=== PATIENT | female | born 1960 | race Caucasian/White ===

== ENCOUNTER 2017-10-28 17:57 | Emergency (ER) | payer OTHER ==
[~2017-10-28] VITALS: Ht 162.6 cm; Wt 59.0 kg
[~2017-10-28 17:57] MED LIST: ACET500 PT; ALBU.083IS IH; ALPR.5; ALPR.5 PO; ALPR1 PT; AMIT10 PO; AMIT50 PO; AMLO10 PO; AMOCLA875 PO; BECL80OI INH; Bactrim Ds Tab1 EACH PO; Banatrol1 EACH PT; CARI350; CEPH500 PO; CIME400; COLE1 PO; DIAZ5; DIVA500EC; Diflucan100 MG PT; Ecotrin325 MG PT; FLUC150A PT; Flagyl500 MG PT; HYDACE5; HYDACE5 PO; IBUP600; LAMO100 PO; LAMO100 PT; LEVE500 PO; LEVE500 PT; LEVSOD50; LEVSOD50 PT; LISI10 PO; LISI20 PO; LORA1 PO; METH1EL PO; METH5 PO; METO10 PO; METO100 PO; METO100ER PO; METO25 PT; METO50 PO; METO50 PT; MUPI2TO TOP; NYSTRIT; OMEP20ER PO; ONDA8 PO; ONDA8ODT MM; OXYACE5T PT; OXYC10ER PO; OXYC10TA19 PT; OXYC15ER PO; OXYC30 PT; OXYC30ER PO; OXYC5 PO; PARO20 PO; POTCHL20ER PT; Pedi-Dri 100,0060 GM; Prevacid Soluta30 MG PT; Pyridium100 MG PO; QUIN300; SACC250C PT; SENN8.8S8 PO; SERT50 PT; SULF10OPSA OD; SULTRIDS PO; SULTRIDS PT; SUMA25 PO; TRAZ50 PO; Zofran Odt4 MG SL
[2017-10-28 19:02] LABS: BASOPHILS ABSOLUTE AUTO 0.02 K/mm3 (0.00-0.23); BASOPHILS PERCENT AUTO 0 % (0-2); EOSINOPHILS ABSOLUTE AUTO 0.16 K/mm3 (0.00-0.68); EOSINOPHILS PERCENT AUTO 3 % (0-6); Hematocrit 35.2 % (33.0-51.0); Hemoglobin 11.2 g/dL (11.5-16.0); IMMATURE GRAN ABSOLUTE AUTO 0.01 K/mm3 (0.00-0.10); IMMATURE GRAN PERCENT AUTO 0 % (0-1); LYMPHOCYTES PERCENT AUTO 39 % (21-46); MONOCYTES ABSOLUTE AUTO 0.64 K/mm3 (0.16-1.47); MONOCYTES PERCENT AUTO 10 % (4-13); Mean Corpuscular HGB 29.2 pg (26.0-34.0); Mean Corpuscular HGB Conc 31.8 g/dL (31.5-36.5); Mean Corpuscular Volume 92 fL (80-100); Mean Platelet Volume 11.7 fL (9.1-12.4); NEUTROPHILS ABSOLUTE AUTO 3.01 K/mm3 (1.96-9.15); NEUTROPHILS PERCENT AUTO 48 % (41-73); Platelet Count 214 K/mm3 (150-400); RDW Coefficient Variation 12.8 % (11.7-14.2); RDW Standard Deviation 42.2 fL (35.1-46.3); Red Blood Cell Count 3.84 M/mm3 (3.80-5.20); White Blood Cell Count 6.24 K/mm3 (4.00-11.30)
[2017-10-28 19:21] LABS: Alanine Aminotransfer (ALT/SGP 25 U/L (12-78); Albumin/Globulin Ratio 0.7 (0.8-1.8); Alk Phos 99 U/L (50-136); Anion Gap 6 mmol/L (6-16); Aspartate Aminotrans (AST/SGOT 18 U/L (12-37); Bilirubin, Total 0.1 mg/dL (0.1-1.0); Blood Urea Nitrogen 22 mg/dL (8-24); CO2, Blood 30 mmol/L (21-32); Calcium, Blood 8.9 mg/dL (8.5-10.1); Chloride, Blood 103 mmol/L (98-108); Creatinine, Blood 0.85 mg/dL (0.40-1.00); Globulin, Blood 4.5 g/dL (2.2-4.0); Glomerular Filtration Rate >60 (60-); Glucose, Blood 120 mg/dL (70-99); Potassium, Blood 3.9 mmol/L (3.5-5.5); Sodium, Blood 139 mmol/L (136-145); Total Protein, Blood 7.5 g/dL (6.4-8.2)
[2017-10-28] MEDS ORDERED: CEPH500 PO (19:47)
[2017-10-28 19:51] LABS: Source, Urine Clean Catch
[2017-10-28 19:58] LABS: Appearance, Urine Hazy (Clear); Bilirubin, Urine Neg (Neg); Blood, Urine 4+ (Neg); Color, Urine Yellow (P-Yellow); Glucose Qualitative, Urine Neg (Neg); Ketones, Urine Neg (Neg); Leukocyte Esterase, Urine 3+ (Neg); Nitrite, Urine Pos (Neg); Protein, Urine Neg (Neg); Urobilinogen, Urine NORM (Normal)
[2017-10-28 20:06] LABS: White Blood Cells, Urine 50-100 /hpf (0-5)
[2017-10-28 20:07] LABS: Bacteria Many /hpf; Squamous Epithelial Cells Few /hpf (Few)
== END 2017-10-28 20:59 | disposition home or self-care (01) ==
LOC: ER 17:57
PROVIDERS: Emergency Medicine
DX: N39.0 Urinary tract infection, site not specified (principal); I10 Essential (primary) hypertension; E03.9 Hypothyroidism, unspecified; G40.909 Epilepsy, unspecified, not intractable, without status epilepticus; Z88.8 Allergy status to other drugs, medicaments and biological substances; Z88.5 Allergy status to narcotic agent; Z91.048 Other nonmedicinal substance allergy status; Z91.09 Other allergy status, other than to drugs and biological substances; Z79.899 Other long term (current) drug therapy; Z86.14 Personal history of Methicillin resistant Staphylococcus aureus infection; Z90.49 Acquired absence of other specified parts of digestive tract; Z90.79 Acquired absence of other genital organ(s)
CPT/HCPCS: 70450; 80053; 81001; 84443; 85025; 96360; 96361; 99284; J7030; P9612

== ENCOUNTER 2017-11-11 10:38 | Emergency (ER) | payer OTHER ==
[~2017-11-11] VITALS: Ht 154.9 cm; Wt 61.2 kg
[2017-11-11 12:10] LABS: BASOPHILS ABSOLUTE AUTO 0.02 K/mm3 (0.00-0.23); BASOPHILS PERCENT AUTO 0 % (0-2); EOSINOPHILS ABSOLUTE AUTO 0.04 K/mm3 (0.00-0.68); EOSINOPHILS PERCENT AUTO 0 % (0-6); Hematocrit 37.8 % (33.0-51.0); Hemoglobin 12.2 g/dL (11.5-16.0); IMMATURE GRAN ABSOLUTE AUTO 0.03 K/mm3 (0.00-0.10); IMMATURE GRAN PERCENT AUTO 0 % (0-1); LYMPHOCYTES ABSOLUTE AUTO 1.65 K/mm3 (0.84-5.20); LYMPHOCYTES PERCENT AUTO 16 % (21-46); MONOCYTES ABSOLUTE AUTO 0.72 K/mm3 (0.16-1.47); MONOCYTES PERCENT AUTO 7 % (4-13); Mean Corpuscular HGB 29.8 pg (26.0-34.0); Mean Corpuscular HGB Conc 32.3 g/dL (31.5-36.5); Mean Corpuscular Volume 92 fL (80-100); NEUTROPHILS ABSOLUTE AUTO 7.85 K/mm3 (1.96-9.15); NEUTROPHILS PERCENT AUTO 76 % (41-73); Platelet Count 266 K/mm3 (150-400); RDW Coefficient Variation 13.4 % (11.7-14.2); RDW Standard Deviation 44.7 fL (35.1-46.3); Red Blood Cell Count 4.09 M/mm3 (3.80-5.20); White Blood Cell Count 10.31 K/mm3 (4.00-11.30)
[2017-11-11 12:35] LABS: Alanine Aminotransfer (ALT/SGP 15 U/L (12-78); Albumin, Blood 3.4 g/dL (3.4-5.0); Albumin/Globulin Ratio 0.7 (0.8-1.8); Alk Phos 86 U/L (50-136); Anion Gap 6 mmol/L (6-16); Aspartate Aminotrans (AST/SGOT 12 U/L (12-37); Bilirubin, Total 0.3 mg/dL (0.1-1.0); Blood Urea Nitrogen 13 mg/dL (8-24); Bun/Creatinine Ratio 17.8 (12.0-20.0); CO2, Blood 31 mmol/L (21-32); Calcium, Blood 10.2 mg/dL (8.5-10.1); Chloride, Blood 103 mmol/L (98-108); Creatinine, Blood 0.73 mg/dL (0.40-1.00); Globulin, Blood 4.8 g/dL (2.2-4.0); Glomerular Filtration Rate >60 (60-); Glucose, Blood 108 mg/dL (70-99); Potassium, Blood 4.6 mmol/L (3.5-5.5); Sodium, Blood 140 mmol/L (136-145); Total Protein, Blood 8.2 g/dL (6.4-8.2)
[2017-11-11 13:22] LABS: Influenza A Negative (NEGATIVE); Influenza B Negative (NEGATIVE)
[2017-11-11] MEDS ORDERED: MUCINEX FAST-M180 M4 PO (14:07)
== END 2017-11-11 14:45 | disposition home or self-care (01) ==
LOC: ER 10:38
PROVIDERS: Emergency Medicine
DX: J06.9 Acute upper respiratory infection, unspecified (principal); G40.909 Epilepsy, unspecified, not intractable, without status epilepticus; G80.9 Cerebral palsy, unspecified; H91.90 Unspecified hearing loss, unspecified ear; F32.9 Major depressive disorder, single episode, unspecified; I10 Essential (primary) hypertension; E03.9 Hypothyroidism, unspecified; Z91.048 Other nonmedicinal substance allergy status; Z88.5 Allergy status to narcotic agent; Z91.09 Other allergy status, other than to drugs and biological substances; Z79.899 Other long term (current) drug therapy; Z79.82 Long term (current) use of aspirin; Z86.14 Personal history of Methicillin resistant Staphylococcus aureus infection; Z90.49 Acquired absence of other specified parts of digestive tract
CPT/HCPCS: 36415; 71045; 80053; 85025; 87804; 94640; 96360; 99283; J7030

== ENCOUNTER 2018-03-10 10:16 | Emergency (ER) | payer OTHER ==
[~2018-03-10] VITALS: Ht 157.5 cm; Wt 62.6 kg
[~2018-03-10 10:16] MED LIST changes: +MUCINEX FAST-M180 M4 PO
== END 2018-03-10 11:14 | disposition home or self-care (01) ==
LOC: ER 10:16
DX: Z43.1 Encounter for attention to gastrostomy (principal); G80.9 Cerebral palsy, unspecified; I67.1 Cerebral aneurysm, nonruptured; Z91.048 Other nonmedicinal substance allergy status; Z88.5 Allergy status to narcotic agent; Z88.8 Allergy status to other drugs, medicaments and biological substances; Z79.899 Other long term (current) drug therapy; Z79.82 Long term (current) use of aspirin; G43.909 Migraine, unspecified, not intractable, without status migrainosus; F32.9 Major depressive disorder, single episode, unspecified; I10 Essential (primary) hypertension; E03.9 Hypothyroidism, unspecified
CPT/HCPCS: 43760; 99283

== ENCOUNTER 2018-04-10 22:22 | Emergency (ER) | payer OTHER ==
[~2018-04-10] VITALS: Ht 157.5 cm; Wt 61.7 kg
[2018-04-11 00:59] LABS: Source, Urine Clean Catch
[2018-04-11 01:01] LABS: Bilirubin, Urine Neg (Neg); Blood, Urine 2+ (Neg); Glucose Qualitative, Urine Neg (Neg); Ketones, Urine Neg (Neg); Leukocyte Esterase, Urine 3+ (Neg); Nitrite, Urine Neg (Neg); Protein, Urine 1+ (Neg); Urobilinogen, Urine NORM (Normal)
[2018-04-11 01:04] LABS: Appearance, Urine Clear (Clear); Color, Urine Yellow (P-Yellow)
[2018-04-11 01:12] LABS: Bacteria Mod /hpf; Red Blood Cells, Urine Not Seen /hpf (0-2); Squamous Epithelial Cells Not Seen /hpf (Few)
== END 2018-04-11 02:20 | disposition home or self-care (01) ==
LOC: ER 22:22
PROVIDERS: Emergency Medicine
DX: G40.909 Epilepsy, unspecified, not intractable, without status epilepticus (principal); Z91.048 Other nonmedicinal substance allergy status; Z88.5 Allergy status to narcotic agent; Z88.8 Allergy status to other drugs, medicaments and biological substances; Z79.899 Other long term (current) drug therapy; Z79.82 Long term (current) use of aspirin; Z91.041 Radiographic dye allergy status
CPT/HCPCS: 51701; 70250; 70450; 71045; 74018; 81001; 82947; 87077; 87086; 87186; 99284-25

== ENCOUNTER 2018-11-09 06:11 | Observation (INO) | payer OTHER ==
[~2018-11-09] VITALS: Ht 157.5 cm; Wt 61.2 kg
[2018-11-09 09:24] LABS: BASOPHILS ABSOLUTE AUTO 0.04 K/mm3 (0.00-0.23); BASOPHILS PERCENT AUTO 0 % (0-2); EOSINOPHILS ABSOLUTE AUTO 0.28 K/mm3 (0.00-0.68); EOSINOPHILS PERCENT AUTO 3 % (0-6); Hemoglobin 12.6 g/dL (11.5-16.0); IMMATURE GRAN ABSOLUTE AUTO 0.03 K/mm3 (0.00-0.10); IMMATURE GRAN PERCENT AUTO 0 % (0-1); LYMPHOCYTES ABSOLUTE AUTO 1.54 K/mm3 (0.84-5.20); LYMPHOCYTES PERCENT AUTO 17 % (21-46); MONOCYTES ABSOLUTE AUTO 0.47 K/mm3 (0.16-1.47); MONOCYTES PERCENT AUTO 5 % (4-13); Mean Corpuscular HGB 29.7 pg (26.0-34.0); Mean Corpuscular HGB Conc 30.7 g/dL (31.5-36.5); Mean Corpuscular Volume 97 fL (80-100); Mean Platelet Volume 10.4 fL (9.1-12.4); NEUTROPHILS ABSOLUTE AUTO 6.68 K/mm3 (1.96-9.15); NEUTROPHILS PERCENT AUTO 74 % (41-73); Platelet Count 294 K/mm3 (150-400); RDW Coefficient Variation 14.5 % (11.7-14.2); RDW Standard Deviation 50.8 fL (35.1-46.3); Red Blood Cell Count 4.24 M/mm3 (3.80-5.20); White Blood Cell Count 9.04 K/mm3 (4.00-11.30)
[2018-11-09 09:44] LABS: Anion Gap 9 mmol/L (6-16); Blood Urea Nitrogen 42 mg/dL (8-24); Bun/Creatinine Ratio 49.2 (12.0-20.0); CO2, Blood 26 mmol/L (21-32); Calcium, Blood 8.9 mg/dL (8.5-10.1); Chloride, Blood 114 mmol/L (98-108); Creatinine, Blood 0.85 mg/dL (0.40-1.00); Glomerular Filtration Rate >60 (60-); Glucose, Blood 73 mg/dL (70-99); Potassium, Blood 3.7 mmol/L (3.5-5.5); Sodium, Blood 149 mmol/L (136-145)
--- NOTE | 2018-11-09 20:05 | NUR ---
SHIFT SUMMARY- PT ADMITTED THROUGH THE ED. PT HAS Hx SEIZURES, SEIZURE PADS IN PLACE, FAMILY IS AT THE BEDSIDE. PT HERE FOR DISLODGED FEEDING TUBE LUQ OPEN TO THE AIR. PER PT FAMILY SHE CAN TAKE IN TINY BITES OF FOOD. SPOKE TO DR CARUSO, HELD FIRST DOSE OF LAMICTAL, REQUESTED IV MED, NO IV EQUIVALENT AVAILABLE, OK TO HOLD FOR ASP PRECAUTIONS. PER PT AT THIS TIME SHE CAN NOT TAKE ANYTHING BY MOUTH, PT DEF AND MUTE BUT CAN WRITE AND SIGN. PT WROTE THAT SHE HAD PAIN 4/10 MEDICATED WITH IV PAIN MEDS. PER PT FAMILY SHE CAN TAKE SMALL AMOUNTS OF PO APPLE SAUCE, PUDDING AND JELLO. CRUSHED PO MEDS AND PUT THEM IN A TINY AMOUNT OF APPLE SAUCE AND GAVE TO THE PT 1/4 TEASPOON AT A TIME, PT HAD NO DIFFICULTY SWALLOWING THIS. PT FAMILY CAME BACK A LITTLE LATER AND GAVE HER PUDDING. INFORMED FAMILY THAT THE PT CAN NOT HAVE ANYTHING BY MOUTH PRIOR TO PROCEDURE SO STARTING AT MIDNIGHT. THEY ARE AWARE, BEDSIDE REPORT COMPLETED WITH NIGHT RIGOBERTO SZYMANSKI. PT CAN BECOME VERY EMOTIONAL AND OCCASSIONALLY CONFUSED. FAMILY IS STAYING WITH HER IN THE ROOM.
[2018-11-10 05:06] LABS: Hematocrit 41.2 % (33.0-51.0); Hemoglobin 12.7 g/dL (11.5-16.0); Mean Corpuscular HGB 29.6 pg (26.0-34.0); Mean Corpuscular HGB Conc 30.8 g/dL (31.5-36.5); Mean Corpuscular Volume 96 fL (80-100); Mean Platelet Volume 10.4 fL (9.1-12.4); Platelet Count 287 K/mm3 (150-400); RDW Coefficient Variation 14.5 % (11.7-14.2); RDW Standard Deviation 50.2 fL (35.1-46.3); Red Blood Cell Count 4.29 M/mm3 (3.80-5.20); White Blood Cell Count 10.25 K/mm3 (4.00-11.30)
[2018-11-10 05:26] LABS: Anion Gap 8 mmol/L (6-16); Blood Urea Nitrogen 34 mg/dL (8-24); Bun/Creatinine Ratio 46.1 (12.0-20.0); CO2, Blood 24 mmol/L (21-32); Calcium, Blood 8.9 mg/dL (8.5-10.1); Chloride, Blood 115 mmol/L (98-108); Creatinine, Blood 0.74 mg/dL (0.40-1.00); Glomerular Filtration Rate >60 (60-); Glucose, Blood 91 mg/dL (70-99); Potassium, Blood 3.8 mmol/L (3.5-5.5); Sodium, Blood 147 mmol/L (136-145)
--- NOTE | 2018-11-10 16:22 | NUR ---
Spiritual care visit conducted. Patient is was sitting in a chair in her room. Patient's uncle was present in the room and helped translate for me into sign language but communication was still a bit difficult. Patient was very joyful and has a wonderful sense of humor. I provided a calming presence and communicated to patient that her strength and love were powerful and beautiful. Patient communicated that she liked me even though she thought I was crazy. Patient asked if I could back when she could stay longer. Patient is a true inspiration.
--- NOTE | 2018-11-10 16:36 | NUR ---
PATIENT D/C'D TO HOME WITH FAMILY. D/C INSTRUCTIONS AND EDUCATION DISCUSSED WITH DANTE THE PATIENTS GUARDIAN AND COPY PROVIDED. PATIENT AND FAMILY DENY ANY FURTHER QUESTIONS OR CONCERNS.
== END 2018-11-10 16:28 | disposition home or self-care (01) ==
LOC: ER 06:11 → MEDS 06:12 → ER 08:58 → MEDS 08:58 → ENPENDDIS 11-10 15:32 → MEDS 11-10 16:28
PROVIDERS: Emergency Medicine; ADMIT Internal Medicine
DX: Z43.1 Encounter for attention to gastrostomy (principal); I10 Essential (primary) hypertension; G80.9 Cerebral palsy, unspecified; G40.909 Epilepsy, unspecified, not intractable, without status epilepticus; R53.2 Functional quadriplegia; F32.9 Major depressive disorder, single episode, unspecified; E03.9 Hypothyroidism, unspecified; Z79.899 Other long term (current) drug therapy; Z91.048 Other nonmedicinal substance allergy status; Z91.041 Radiographic dye allergy status; Z88.5 Allergy status to narcotic agent
CPT/HCPCS: 36415; 43762; 49465; 80048; 85025; 85027; 96361-59; 96372-59; 96374-59; 96375-59; 96376; 99284-25; G0378; J1200; J2930; J3010; J7120; Q9963

== ENCOUNTER 2018-11-25 15:53 | Emergency (ER) | payer OTHER ==
[~2018-11-25] VITALS: Ht 162.6 cm; Wt 64.0 kg
[2018-11-25 16:29] LABS: BASOPHILS ABSOLUTE AUTO 0.04 K/mm3 (0.00-0.23); BASOPHILS PERCENT AUTO 1 % (0-2); EOSINOPHILS ABSOLUTE AUTO 0.17 K/mm3 (0.00-0.68); EOSINOPHILS PERCENT AUTO 3 % (0-6); Hematocrit 37.4 % (33.0-51.0); Hemoglobin 11.5 g/dL (11.5-16.0); IMMATURE GRAN ABSOLUTE AUTO 0.02 K/mm3 (0.00-0.10); IMMATURE GRAN PERCENT AUTO 0 % (0-1); LYMPHOCYTES ABSOLUTE AUTO 2.07 K/mm3 (0.84-5.20); LYMPHOCYTES PERCENT AUTO 33 % (21-46); MONOCYTES ABSOLUTE AUTO 0.49 K/mm3 (0.16-1.47); MONOCYTES PERCENT AUTO 8 % (4-13); Mean Corpuscular HGB 30.1 pg (26.0-34.0); Mean Corpuscular HGB Conc 30.7 g/dL (31.5-36.5); Mean Corpuscular Volume 98 fL (80-100); Mean Platelet Volume 10.7 fL (9.1-12.4); NEUTROPHILS ABSOLUTE AUTO 3.42 K/mm3 (1.96-9.15); NEUTROPHILS PERCENT AUTO 55 % (41-73); Platelet Count 252 K/mm3 (150-400); RDW Coefficient Variation 14.6 % (11.7-14.2); RDW Standard Deviation 52.2 fL (35.1-46.3); Red Blood Cell Count 3.82 M/mm3 (3.80-5.20); White Blood Cell Count 6.21 K/mm3 (4.00-11.30)
[2018-11-25 16:57] LABS: Alanine Aminotransfer (ALT/SGP 14 U/L (12-78); Albumin, Blood 2.9 g/dL (3.4-5.0); Albumin/Globulin Ratio 0.6 (0.8-1.8); Alk Phos 72 U/L (50-136); Anion Gap 4 mmol/L (6-16); Aspartate Aminotrans (AST/SGOT 16 U/L (12-37); Bilirubin, Total 0.3 mg/dL (0.1-1.0); Blood Urea Nitrogen 14 mg/dL (8-24); Bun/Creatinine Ratio 18.1 (12.0-20.0); CO2, Blood 33 mmol/L (21-32); Calcium, Blood 8.3 mg/dL (8.5-10.1); Chloride, Blood 104 mmol/L (98-108); Creatinine, Blood 0.77 mg/dL (0.40-1.00); Globulin, Blood 4.6 g/dL (2.2-4.0); Glomerular Filtration Rate >60 (60-); Glucose, Blood 83 mg/dL (70-99); Potassium, Blood 3.8 mmol/L (3.5-5.5); Sodium, Blood 141 mmol/L (136-145); Total Protein, Blood 7.5 g/dL (6.4-8.2)
== END 2018-11-25 19:05 | disposition home or self-care (01) ==
LOC: ER 15:53
PROVIDERS: Physician Assistant
DX: Z43.1 Encounter for attention to gastrostomy (principal); Z91.048 Other nonmedicinal substance allergy status; Z88.5 Allergy status to narcotic agent; Z88.8 Allergy status to other drugs, medicaments and biological substances; Z79.899 Other long term (current) drug therapy; G43.909 Migraine, unspecified, not intractable, without status migrainosus; F32.9 Major depressive disorder, single episode, unspecified; I10 Essential (primary) hypertension; E03.9 Hypothyroidism, unspecified
CPT/HCPCS: 36415; 49465; 80053; 85025; J1200; J2920; J7030; Q9963

== ENCOUNTER → 2018-11-25 | Outpatient (CLI) | payer OTHER | END | disposition home or self-care (01) | LOC: LAB 16:15 → LAB SHORT 16:15 | DX: Z51.81 Encounter for therapeutic drug level monitoring (principal); G40.209 Localization-related (focal) (partial) symptomatic epilepsy and epileptic syndromes with complex partial seizures, not intractable, without status epilepticus; Z79.899 Other long term (current) drug therapy | CPT/HCPCS: 80175 ==

== ENCOUNTER 2019-07-22 08:51 | Emergency (ER) | payer OTHER ==
[~2019-07-22] VITALS: Ht 152.4 cm; Wt 49.9 kg
== END 2019-07-22 10:35 | disposition home or self-care (01) ==
LOC: ER 08:51
DX: Z43.1 Encounter for attention to gastrostomy (principal); F32.9 Major depressive disorder, single episode, unspecified; E03.9 Hypothyroidism, unspecified; I10 Essential (primary) hypertension; Z91.09 Other allergy status, other than to drugs and biological substances; Z79.899 Other long term (current) drug therapy; Z88.5 Allergy status to narcotic agent
CPT/HCPCS: 43762; 49465; 99283-25; Q9963

== ENCOUNTER 2019-10-22 19:58 | Emergency (ER) | payer OTHER ==
[~2019-10-22] VITALS: Ht 154.9 cm; Wt 68.0 kg
[2019-10-22 21:05] LABS: BASOPHILS ABSOLUTE AUTO 0.02 K/mm3 (0.00-0.23); BASOPHILS PERCENT AUTO 0 % (0-2); EOSINOPHILS ABSOLUTE AUTO 0.06 K/mm3 (0.00-0.68); EOSINOPHILS PERCENT AUTO 1 % (0-6); Hematocrit 39.6 % (33.0-51.0); Hemoglobin 12.8 g/dL (11.5-16.0); IMMATURE GRAN ABSOLUTE AUTO 0.02 K/mm3 (0.00-0.10); IMMATURE GRAN PERCENT AUTO 0 % (0-1); LYMPHOCYTES ABSOLUTE AUTO 0.73 K/mm3 (0.84-5.20); LYMPHOCYTES PERCENT AUTO 9 % (21-46); MONOCYTES ABSOLUTE AUTO 0.46 K/mm3 (0.16-1.47); MONOCYTES PERCENT AUTO 6 % (4-13); Mean Corpuscular HGB 30.6 pg (26.0-34.0); Mean Corpuscular HGB Conc 32.3 g/dL (31.5-36.5); Mean Corpuscular Volume 95 fL (80-100); Mean Platelet Volume 11.2 fL (9.1-12.4); NEUTROPHILS ABSOLUTE AUTO 6.91 K/mm3 (1.96-9.15); NEUTROPHILS PERCENT AUTO 84 % (41-73); Platelet Count 221 K/mm3 (150-400); RDW Coefficient Variation 12.9 % (11.7-14.2); Red Blood Cell Count 4.18 M/mm3 (3.80-5.20)
[2019-10-22 21:24] LABS: Alanine Aminotransfer (ALT/SGP 61 U/L (12-78); Albumin, Blood 3.5 g/dL (3.4-5.0); Albumin/Globulin Ratio 0.8 (0.8-1.8); Alk Phos 176 U/L (50-136); Anion Gap 6 mmol/L (6-16); Aspartate Aminotrans (AST/SGOT 34 U/L (12-37); Bilirubin, Total 0.2 mg/dL (0.1-1.0); Blood Urea Nitrogen 37 mg/dL (8-24); Bun/Creatinine Ratio 41.7 (12.0-20.0); CO2, Blood 26 mmol/L (21-32); Calcium, Blood 9.2 mg/dL (8.5-10.1); Chloride, Blood 104 mmol/L (98-108); Creatinine, Blood 0.89 mg/dL (0.40-1.00); Globulin, Blood 4.5 g/dL (2.2-4.0); Glomerular Filtration Rate >60 (60-); Glucose, Blood 110 mg/dL (70-99); Magnesium, Blood 2.4 mg/dL (1.6-2.4); Potassium, Blood 3.8 mmol/L (3.5-5.5); Sodium, Blood 136 mmol/L (136-145)
== END 2019-10-22 22:15 | disposition home or self-care (01) ==
LOC: ER 19:58
PROVIDERS: Emergency Medicine
DX: G40.909 Epilepsy, unspecified, not intractable, without status epilepticus (principal); G80.9 Cerebral palsy, unspecified; G43.909 Migraine, unspecified, not intractable, without status migrainosus; I10 Essential (primary) hypertension; E03.9 Hypothyroidism, unspecified; F32.9 Major depressive disorder, single episode, unspecified; Z91.048 Other nonmedicinal substance allergy status; Z88.5 Allergy status to narcotic agent; Z91.09 Other allergy status, other than to drugs and biological substances; Z79.899 Other long term (current) drug therapy; Z86.79 Personal history of other diseases of the circulatory system
CPT/HCPCS: 36415; 70450; 80053; 80175; 83735; 85025; 99284-25

== ENCOUNTER 2020-04-25 12:34 | Inpatient (IN) | payer OTHER ==
[~2020-04-25] VITALS: Ht 157.5 cm; Wt 51.4 kg
[~2020-04-25 12:34] MED LIST changes: +EUTHYROX50 MCG PT; +LAMICTAL200 MG PT; -LEVSOD50 PT; +METO100 PT; -METO50 PT
[2020-04-25 12:45] LABS: Calcium, Ionized (POC) 1.19 mmol/L (1.10-1.46); Chloride (POC) 108 mmol/L (98-108); Creatinine (POC) 0.8 mg/dL (0.6-1.0); Glucose (ISTAT POC) 184 mg/dL (70-99); Hemoglobin (POC) 13.9 g/dL (12.0-16.0); Potassium (POC) 3.7 mmol/L (3.5-5.5); Sodium (POC) 144 mmol/L (135-148); Total CO2 (POC) 17 mmol/L (21-32)
[2020-04-25] MEDS ORDERED: OXYC30 PT (12:52)
[2020-04-25 12:54] LABS: PCO2 Arterial 52.7 mmHg (35-45); PO2 Arterial 101 mmHg (80-100)
[2020-04-25 12:55] LABS: BASOPHILS ABSOLUTE AUTO 0.07 K/mm3 (0.00-0.23); BASOPHILS PERCENT AUTO 1 % (0-2); EOSINOPHILS ABSOLUTE AUTO 0.17 K/mm3 (0.00-0.68); EOSINOPHILS PERCENT AUTO 1 % (0-6); Hematocrit 44.2 % (33.0-51.0); Hemoglobin 12.6 g/dL (11.5-16.0); IMMATURE GRAN ABSOLUTE AUTO 0.43 K/mm3 (0.00-0.10); IMMATURE GRAN PERCENT AUTO 3 % (0-1); LYMPHOCYTES ABSOLUTE AUTO 9.91 K/mm3 (0.84-5.20); LYMPHOCYTES PERCENT AUTO 73 % (21-46); MONOCYTES ABSOLUTE AUTO 0.76 K/mm3 (0.16-1.47); MONOCYTES PERCENT AUTO 6 % (4-13); Mean Corpuscular HGB 30.4 pg (26.0-34.0); Mean Corpuscular HGB Conc 28.5 g/dL (31.5-36.5); Mean Corpuscular Volume 107 fL (80-100); Mean Platelet Volume 11.9 fL (9.1-12.4); NEUTROPHILS ABSOLUTE AUTO 2.21 K/mm3 (1.96-9.15); NEUTROPHILS PERCENT AUTO 16 % (41-73); NRBC ABSOLUTE 0.03 K/mm3 (0.00-0.02); NRBC Auto 0.2 /100 WBC (0.0-0.2); Platelet Count 247 K/mm3 (150-400); RDW Coefficient Variation 12.7 % (11.7-14.2); Red Blood Cell Count 4.14 M/mm3 (3.80-5.20); White Blood Cell Count 13.55 K/mm3 (4.00-11.30)
[2020-04-25 13:05] LABS: Source, Urine Catheter
[2020-04-25 13:09] LABS: Alanine Aminotransfer (ALT/SGP 66 U/L (12-78); Albumin/Globulin Ratio 0.7 (0.8-1.8); Alk Phos 181 U/L (50-136); Anion Gap 23 mmol/L (6-16); Aspartate Aminotrans (AST/SGOT 87 U/L (12-37); Bilirubin, Total 0.2 mg/dL (0.1-1.0); Blood Urea Nitrogen 18 mg/dL (8-24); Bun/Creatinine Ratio 19.1 (12.0-20.0); CO2, Blood 13 mmol/L (21-32); Calcium, Blood 9.3 mg/dL (8.5-10.1); Chloride, Blood 107 mmol/L (98-108); Creatinine, Blood 0.94 mg/dL (0.40-1.00); Globulin, Blood 4.6 g/dL (2.2-4.0); Glomerular Filtration Rate >60 (60-); Glucose, Blood 198 mg/dL (70-99); Potassium, Blood 3.8 mmol/L (3.5-5.5); Sodium, Blood 143 mmol/L (136-145); Total Protein, Blood 7.6 g/dL (6.4-8.2)
[2020-04-25 13:16] LABS: Appearance, Urine Hazy (Clear); Bilirubin, Urine Neg (Neg); Blood, Urine 2+ (Neg); Color, Urine Yellow (P-Yellow); Glucose Qualitative, Urine Neg (Neg); Ketones, Urine Neg (Neg); Leukocyte Esterase, Urine 2+ (Neg); Nitrite, Urine Neg (Neg); Protein, Urine Neg (Neg); Specific Gravity, Urine 1.005 (1.003-1.022); Urobilinogen, Urine NORM (Normal)
[2020-04-25 13:26] LABS: Bacteria Many /hpf
[2020-04-25 13:27] LABS: Red Blood Cells, Urine 0-2 /hpf (0-2)
[2020-04-25 13:30] LABS: White Blood Cells, Urine 25-50 /hpf (0-5)
[2020-04-25 13:32] LABS: Amorphous Light (0-Heavy); Squamous Epithelial Cells Few /hpf (Few); Transitional Epithelial Cells Rare /hpf (0-Rare)
[2020-04-25] MEDS ORDERED: MULTI VITAMIN1 EACH PO (14:08)
[2020-04-25] MEDS ORDERED: FERREX 150150 M1 PO (14:08)
--- NOTE | 2020-04-25 14:26 | NUR ---
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 PT CONSIDERED LOW RISK, NO ISOLATION AT THIS TIME.
--- NOTE | 2020-04-25 16:48 | NUR ---
Received call from Dr Fraire and discussed case. Met with Pt's family out in ICU [place]erson with Chaplain Yen already offering emotional support. This RN offered additional support. Escorted family to Pt's room per Bedside RN Poncho. Pt resting in bed and intubated. Discussed case with Bedside RN Poncho. Delivered lab specimen to lab per request from Poncho. Spoke with Dr Bobo and discussed case. Dr Bobo reports Pt has shown some improvement already. Pt requiring additional care by multiple staff and escorted family to ICU waiting room. Laborer [employer] Maintenance[employer]ang Yen in to offer aditional support. Palliative Care will F/U for supportive and therapeutic visits.
[2020-04-25 17:04] LABS: PCO2 Arterial 50.7 mmHg (35-45); PO2 Arterial 102 mmHg (80-100)
[2020-04-25 17:05] LABS: pH Blood Arterial 7.29 (7.35-7.45)
--- NOTE | 2020-04-25 18:25 | NUR ---
1500 PT ADMIT NARRATIVE... PT ADMITED ON VENT WITH RIJ LINE INFISING WITH PROPOFOL BUT LINE OUT. IVF CHANGED TO ACCOMIDATE PROPOFOL AND EPI GTT. EPI GTT AT 10MCG AND WAS TITRATED UP AND DOWN DURING CHANGE TO LEVOPHED GTT DUE TO STOPPING FENTANYL GTT AND ADJUSTING PROPOFOL WITH PROCEDURES. DR DEL ROSARIO DID A URGENT BRONCH WITH WASHING THAT WAS WALKED TO LAB PER SHANNAN FRANKLIN. SEE DR NOTED. PT VS NOTED. G-TUBE SITE WAS PHOTOGRAPHED. PT HAS WRIST RESTRAINTS PLACE TO PROTECT LINES. YULIA FRANKLIN PLACED BEDOLLA TUBE PER G-TUBE FOR PATENCE AND SECURED. DR SCHULZ WAS CALLED PER DR DEL ROSARIO. ABG NOTED. PICC TO BE PLACE. LEVPHED GTT AT 12MCG AND VS NOTED.
--- NOTE | 2020-04-25 18:40 | NUR ---
PT VS NOTED AT APPROX 1400 AND EMOTIONALLY ESCALATING. PRECEDEX GTT WAS RESTARTED AND TITRATED TO 0.7 WHERE IT REMAINS. PT IS ABLE TO [id number] AND IS CALM BUT NOT NEARLY MENTALLY CLEAR AND VERBAL NOW OR AT THE TIME OF STARTING PRECEDEX GTT. RESTRAINTS REMAIN ON. I/O NOTED. PT REMAINS NSR.
--- NOTE | 2020-04-25 19:25 | NUR ---
Initial spiritual care note: Present with family when pt arrived in ED. Enid's SEEMA, Joe is legal gaurdian and appears loving/devoted. Later in day, I met with Joe and his , Aliya (pt's sister) in ICU. Aliya was very emotional and tearful. Both responded well to assurance of care, spiritual day camp counselor and prayer. Aliya states "I will never let her go." Pt's family has cared for her all her life. I will remain available.
--- NOTE | 2020-04-25 19:26 | NUR ---
PICC ATTEMPT WAS UNSUCCESSFUL AND WILL AWAITE CENTRAL LINE. PT BP STABLE ON LEVOPHED GTT AT 12MCG. PT FAMILY IN TO VIST. PT SATS NOTED.
[2020-04-26 04:17] LABS: BASOPHILS ABSOLUTE AUTO 0.01 K/mm3 (0.00-0.23); BASOPHILS PERCENT AUTO 0 % (0-2); EOSINOPHILS ABSOLUTE AUTO 0.01 K/mm3 (0.00-0.68); EOSINOPHILS PERCENT AUTO 0 % (0-6); IMMATURE GRAN ABSOLUTE AUTO 0.04 K/mm3 (0.00-0.10); IMMATURE GRAN PERCENT AUTO 0 % (0-1); LYMPHOCYTES ABSOLUTE AUTO 0.84 K/mm3 (0.84-5.20); LYMPHOCYTES PERCENT AUTO 6 % (21-46); MONOCYTES ABSOLUTE AUTO 0.89 K/mm3 (0.16-1.47); MONOCYTES PERCENT AUTO 7 % (4-13); Mean Corpuscular HGB 30.3 pg (26.0-34.0); Mean Corpuscular HGB Conc 32.4 g/dL (31.5-36.5); Mean Platelet Volume 10.6 fL (9.1-12.4); NEUTROPHILS ABSOLUTE AUTO 11.26 K/mm3 (1.96-9.15); NEUTROPHILS PERCENT AUTO 86 % (41-73); Platelet Count 203 K/mm3 (150-400); RDW Coefficient Variation 12.9 % (11.7-14.2); RDW Standard Deviation 44.3 fL (35.1-46.3); Red Blood Cell Count 3.63 M/mm3 (3.80-5.20); White Blood Cell Count 13.05 K/mm3 (4.00-11.30)
[2020-04-26 04:37] LABS: Mean Corpuscular Volume 94 fL (80-100)
[2020-04-26 04:39] LABS: Alanine Aminotransfer (ALT/SGP 69 U/L (12-78); Albumin, Blood 2.5 g/dL (3.4-5.0); Albumin/Globulin Ratio 0.7 (0.8-1.8); Alk Phos 150 U/L (50-136); Anion Gap 6 mmol/L (6-16); Aspartate Aminotrans (AST/SGOT 104 U/L (12-37); Bilirubin, Total 0.3 mg/dL (0.1-1.0); Blood Urea Nitrogen 13 mg/dL (8-24); Bun/Creatinine Ratio 19.5 (12.0-20.0); CO2, Blood 28 mmol/L (21-32); Calcium, Blood 7.1 mg/dL (8.5-10.1); Chloride, Blood 113 mmol/L (98-108); Creatinine, Blood 0.67 mg/dL (0.40-1.00); Globulin, Blood 3.6 g/dL (2.2-4.0); Glomerular Filtration Rate >60 (60-); Glucose, Blood 123 mg/dL (70-99); Potassium, Blood 3.4 mmol/L (3.5-5.5); Sodium, Blood 147 mmol/L (136-145); Total Protein, Blood 6.1 g/dL (6.4-8.2)
--- NOTE | 2020-04-26 05:10 | NUR ---
SHIFT SUMMARY PATIENT HAS SLEPT WELL THROUGH NIGHT. AFTER LEAKING NOTED AROUND CENTRAL LINE, WAS ABLE TO CHANGE IT ABOUT AN HOUR AGO, SCANT DRAINAGE NOTED AT SUTURE SITES, NEW SHANNAN DRESSING PLACED. HAVE BEEN ABLE TO MINIMALLY DECREASE LEVOPHED DRIP, KEEPING PROPOFOL @ 40 MCG/KG/HR, PT. WAKES WITH MOST CARE, DRIFTS BACK TO SLEEP IN A COUPLE OF MINUTES. BATH COMPLETED. AM AWAITING FINAL ELECTROLYTE RESULTS FOR REPLACEMENT. ASSESSMENT IS CHARTED. VSS. WILL CONTINUE TO MONITOR.
[2020-04-26 05:14] LABS: Magnesium, Blood 1.9 mg/dL (1.6-2.4); Phosphorus, Blood 2.9 mg/dL (2.5-4.9)
--- NOTE | 2020-04-26 08:00 | NUR ---
INITIAL ASSESSMENT PATIENT INTUBATED AND ON SEDATION. PATIENT RESPONDING TO NOXIOUS STIMULI WITH GRIMACING OF BROWS. PATIENT NOT MOVING EXTREMITIES AT THIS TIME. LEFT HAND CONTRACTED. [id number] (CAREGIVER) STATES THAT PATIENT WEAK ON LEFT SIDE AND IS ALSO DEAF AND NONVERBAL. NO SIGNS OF PAIN NOTED. PATIENT AFEBRILE. PATIENT ON VENT SETTINGS OF AC 14, TV 320, PEEP 5, 35% FIO2. LUNGS CLEAR IN UPPER LOBES AND DIMINISHED IN LOWER LOBES. PATIENT IN SR, HR IN THE 70S. BP STABLE ON LEVOPHED AT 8 MCG/ MINUTE. ABDOMINAL SOUNDS HYPOACTIVE. OLD PEG TUBE SITE TO ABDOMEN- 16 F BEDOLLA CATHETER PRESENT WITH TAMIKO VALVE ON END. BEDOLLA IN PLACE DRAINING MINIMAL AMOUNT OF CLEAR, YELLOW URINE. SCATTERED BRUISES AND ABRASIONS THROUGHOUT BODY. BRUISE TO LEFT EYEBROW. BUMP TO L TEMPORAL. PROPOFOL AT 40 MCG/ KG/ MINUTE. NS AT 75 MLS/ HOUR. BED LOW, CALL LIGHT IN REACH. WILL CONTINUE TO MONITOR FREQUENTLY THROUGHOUT SHIFT.
--- NOTE | 2020-04-26 12:15 | NUR ---
PATIENT RESTING QUIETLY IN BED. ON MINIMAL SEDATION. PATIENT FOLLOWING SOME SIMPLE COMMANDS. PATIENT HAS TEMP OF 101.9- DR. BOTELLO INFORMED. STATED TO PLACE FAN ON PATIENT AND GIVE PRN TYLENOL RECTALLY IF GOES OVER 102 DEGREES FAHRENHEIT. PATIENT REMAINS ON VENT- AC 14, TV 320, PEEP 5, FIO2 30%. HR 70S TO 80S. BP STABLE ON 7 MCG/ MINUTE OF LEVOPHED. DR. BOTELLO DOES NOT FEEL LIKE MAG AND POTASSIUM NEED RECHECKED AFTER AM REPLACEMENTS. NO SIGNS OF PAIN AT THIS TIME. CALL LIGHT IN REACH. WILL CONTINUE TO MONITOR.
--- NOTE | 2020-04-26 16:15 | NUR ---
NO CHANGE IN NEURO STATUS. PROPOFOL REMAINS AT 15 MCG/ KG/ HOUR. TEMP OF 100.2 DEGREES FAHRENHEIT. HR 70S TO 80S. BP STABLE ON LEVOPHED AT 3 MCG/ MINUTE. DR. SCHULZ PLACED 20 F G-TUBE.
--- NOTE | 2020-04-26 18:05 | NUR ---
Followup spiritual care visit: Provided supportive visit to Joe STEPHENSON, at bedside. He appears releived that Enid is doing better. "She's a fighter." Prayer and encouragement accepted. I will remain available.
--- NOTE | 2020-04-26 19:07 | NUR ---
SHIFT SUMMARY PATIENT DEAF AND NONVERBAL AT BASELINE. PATIENT ABLE TO FOLLOW COMMANDS. PATIENT ABLE TO MOVE ALL EXTREMITIES. PATIENT GIVEN PRN FOR COMPLAINT OF CHEST PAIN FROM CPR. NURSE COMMUNICATING WITH PATIENT WITH USE OF PEN AND PAPER. PATIENT HAD TMAX OF 101.9 DEGREES FAHRENHEIT. PATIENT EXTUBATED AROUND 1700. PATIENT SATTING 90% AND GREATER ON 2 L NC. PATIENT HAS REMAINED IN SR, HR 70S TO 80S. LEVOPHED UP TO 9 MCG/ MINUTE THIS SHIFT; CURRENTLY ON STANDBY. G-TUBE PLACED BY DR. SCHULZ. BEDOLLA HAD GOOD OUTPUT. NO CHANGE IN SKIN. PATIENT REPOSITIONED THROUGHOUT SHIFT. BED LOW, CALL LIGHT IN REACH. REPORT GIVEN TO ASSUMING CITY RECORDER NURSE.
[2020-04-27 03:33] LABS: BASOPHILS ABSOLUTE AUTO 0.03 K/mm3 (0.00-0.23); BASOPHILS PERCENT AUTO 0 % (0-2); EOSINOPHILS ABSOLUTE AUTO 0.09 K/mm3 (0.00-0.68); EOSINOPHILS PERCENT AUTO 1 % (0-6); Hematocrit 30.7 % (33.0-51.0); Hemoglobin 9.9 g/dL (11.5-16.0); IMMATURE GRAN ABSOLUTE AUTO 0.05 K/mm3 (0.00-0.10); IMMATURE GRAN PERCENT AUTO 0 % (0-1); LYMPHOCYTES ABSOLUTE AUTO 1.34 K/mm3 (0.84-5.20); LYMPHOCYTES PERCENT AUTO 11 % (21-46); MONOCYTES ABSOLUTE AUTO 0.86 K/mm3 (0.16-1.47); MONOCYTES PERCENT AUTO 7 % (4-13); Mean Corpuscular HGB 30.7 pg (26.0-34.0); Mean Corpuscular HGB Conc 32.2 g/dL (31.5-36.5); Mean Corpuscular Volume 95 fL (80-100); Mean Platelet Volume 11.2 fL (9.1-12.4); NEUTROPHILS ABSOLUTE AUTO 10.01 K/mm3 (1.96-9.15); NEUTROPHILS PERCENT AUTO 81 % (41-73); Platelet Count 141 K/mm3 (150-400); RDW Coefficient Variation 13.2 % (11.7-14.2); RDW Standard Deviation 46.1 fL (35.1-46.3); Red Blood Cell Count 3.23 M/mm3 (3.80-5.20); White Blood Cell Count 12.38 K/mm3 (4.00-11.30)
[2020-04-27 03:52] LABS: Anion Gap 2 mmol/L (6-16); Blood Urea Nitrogen 7 mg/dL (8-24); Bun/Creatinine Ratio 11.4 (12.0-20.0); CO2, Blood 27 mmol/L (21-32); Calcium, Blood 8.1 mg/dL (8.5-10.1); Chloride, Blood 117 mmol/L (98-108); Creatinine, Blood 0.61 mg/dL (0.40-1.00); Glomerular Filtration Rate >60 (60-); Glucose, Blood 92 mg/dL (70-99); Magnesium, Blood 1.7 mg/dL (1.6-2.4); Potassium, Blood 4.1 mmol/L (3.5-5.5); Sodium, Blood 146 mmol/L (136-145)
--- NOTE | 2020-04-27 04:18 | NUR ---
SHIFT SUMMARY PATIENT HAS SLEPT OFF AND ON THROUGH NIGHT. COMMUNICATION IS EXTREMELY LIMITED. PT. APPEARED TO UNDERSTAND WHAT I WAS WRITING FOR HER EARLIER, THE NIGHT HAS GONE ON, IT APPEARS SHE WAS LIKELY JUST NODDING IN AGREEMENT WITH WHATEVER I WAS WRITING. AT ONE POINT I WROTE 'COUGH, THEN SPIT INTO THE TUBE (YANKEUR),' PATIENT THEN POINTED TO HER PROTESTANT/BRAIN AND SHRUGGED, IF TO INDICATE SHE COULDN'T READ WHAT I WAS WRITING. HAVE BEEN SOMEWHAT SUCCESSFUL MIMING SOME THINGS. PT. SOMEWHAT SUCCESSFUL IN COUGHING UP SOME SECRETIONS, HOWEVER JUST WANTS TO PLAY WITH THE YANKEUR INSTEAD OF ACTUALLY SUCKING OUT SECRETIONS. PAIN HAS BEEN A PERSISTENT ISSUE DESPITE PRN MEDICATIONS, HOWEVER SEEMS BETTER AFTER GETTING LIDOCAINE PATCH. UNABLE TO COMMUNICATE SHE WILL LIKELY HAVE PAIN FOR A WHILE DUE TO CHEST COMPRESSIONS. NO MAJOR CHANGES TO NOTE. ASSESSMENT IS CHARTED. VSS. PAIN APPEARS TO BE TOLERABLE AT THIS TIME. WILL CONTINUE TO MONITOR.
--- NOTE | 2020-04-27 08:10 | NUR ---
ASSUMED CARE RECEIEVED REPORT FROM RIGOBERTO GOMEZ. PT IS LYING IN BED NONVERBAL, AND DEAF. SHE APPEARS TO BE IN SOME DISCOMFORT. SHE HAS A PATENT BEDOLLA, DRAINING YELLOW URINE. SHE HAS A RIGHT IJ CVC - SITE LOOKS WNL. NS TKO INFUSING WITH AZITHROMYCIN PB. SHE IS ON 2L NC, WITH MOSTLY STABLE VITALS, SHE IS IN SINUS TACHYCARDIA, HR 110-120'S. ADEQUQATE BP. BED LOW AND LOCKED. CALL LIGHT WITHIN REACH - TV ON.
--- NOTE | 2020-04-27 10:31 | NUR ---
UPDATE BROTHER IN-LAW OF PT IS HERE AND CAN DO SIGN LANGUAGE. HE HAS BEEN HELPING ME COMMUNICATE WITH HER. I REMOVED HER RIGHT IJ CVC, AND IT WENT WELL - DESPITE HER HAVING TROUBLE FOLLOWING COMMANDS, LIKE HOLDING HER BREATH. NO COMPLICATIONS. AFTER, HER XRAY OF HER ABDOMEN TO CONFIRM G TUBE PLACEMENT, WE CAN START HER ON HER HOME MEDS (WHICH WILL HELP WITH HER HYPTERTENSION), AND WILL HELP WITH PAIN AND ANXIETY. THE LENS EDGER IS UPDATED ON PLAN, AND WILL COME UP WITH A FORMULA FOR HER TUBE FEEDING. A LIDOCAINE PATCH IS PLACED ON HER CHEST, AND SHE WAS GIVEN SOME FENTANYL IV AND THE BROTHER IN-LAW STATES SHE TOLD HIM SHE FEELS BETTER RIGHT NOW. BED LOW AND LOCKED. CALL LIGHT WITHIN REACH. BROTHER IN-LAW REMAINS AT BEDSIDE.
--- NOTE | 2020-04-27 13:26 | NUR ---
UPDATE PLACED CALL TO ALFA, IN DIETARY, TO DISCUSS TF. SINCE THE TF IS BEING STARTED LATER IN THE DAY - WE DECIDED TO DO 2 CANS OVER THE COURSE OF 8 HOURS AND TO START BACK UP WITH THE COMPLETE GOAL OF 4 CANS OVER 15 HOURS TOMORROW AT 0700.
--- NOTE | 2020-04-27 13:32 | NUR ---
Pt resting in bed upon arrival. Communication board already in room. Provided board and explored concerns. Pt reports 2/10 pain in her chest. Pt points at board with picture of wanting her teeth brushed. Pt reports no other concerns at this time. Spoke with Bedside RN Kiarra, discussed case, and relayed Pt's wishes. Kiarra reports Pt is aspiration risk and will provide toothetes for oral care. Kiarra report family is reporting understanding that Pt is strict NPO and should not be given anything oraly. No concerns reported at this time. Palliative Care will remain available.
--- NOTE | 2020-04-27 14:05 | NUR ---
UPDATE PT IS USING THE VISUAL COMMUNICATION BOARD QUITE WELL, WANTING HER MOUTH CLEANED, AND ABLE TO TELL ME A PAIN SCORE AND LOCATION. BEFORE I WAS USING A CPOT SCORE. SHE IS STILL FEELING QUITE NAUSEOUS, I MEDICATED WITH SOME ZOFRAN AGAIN. IT HAD GIVEN HER RELIEF EARLIER. SHE IS QUITE "GURGLY" AND WILL REQUIRE NT SUCTIONING (PER DR. BOTELLO) I HAVE COMMUNICATED WITH RT Karley ZAMARRIPA, AND WE WILL GET THAT GOING. WE ALSO WILL BE DOING SOME CPT USING THE BED'S PERCUSSION SETTING.
--- NOTE | 2020-04-27 15:14 | NUR ---
UPDATE 1430 - PT REPOSITIONED, AND WE PLACED AN ABDOMINAL BINDER AROUND HER SO THAT SHE WOULDN'T PULL OUT THE G TUBE (WHICH I GUESS SHE HAS DONE MULTIPLE TIMES IN THE PAST). SHE DOESN'T SEEM TO MIND IT OR NOTICE IT. JEVITY 1.5 IS NOW INFUSING AT 55 ML/HR WITH 195 ML-Q3H FLUSHES FOR THE NEXT 8 HOURS. NOW - MARILOU-RT NT SUCTIONED AND GOT A GOOD AMOUNT OF THICK, DUNNE SECRETIONS WITH SOME BLOOD SPECS IN IT, AND IS NOW DOING MANUAL CPT PER DR. BOTELLO.
--- NOTE | 2020-04-27 18:58 | NUR ---
SHIFT SUMMARY PT HAD A GOOD DAY. SHE IS NOW PCU STATUS, RIGHT IJ CVC REMOVED WITH NO DIFFICULTIES/COMPLICATIONS, STILL DOESN'T NEED PRESSORS, ON 1-2L NC, AND SHE GOT UP TO THE CHAIR WITH ONLY REQUIRING ONE PERSON TO HELP HER STAND. HER VITALS ARE STABLE, BP IS MUCH BETTER AFTER HER ONE HIGH MOMENT THIS MORNING (WHEN SHE WAS ANXIOUS, AND IN PAIN). SHE IS SINUS--SINUS TACH (90's-120). HER BROTHER IN-LAW CAME IN TODAY AND HELPED US COMMUNICATE WITH HER. SHE HAS BEEN IN SOME PAIN IN HER CHEST AND LOWER ABDOMEN, WELL HER LEFT NECK. SHE HAS BEEN REQUIRING THE FENTANYL. I SUGGESTED THAT WE START HER BACK ON HER HOME MEDS (OXYCODONE FOR PAIN). BUT IT WASN'T ENTERED IN. I WILL INFORM THE NOC NURSE. SHE ALSO LOVES FREQUENT ORAL CARE. SHE HAS BEEN HAVING A DRY MOUTH AND BEEN WANTING TO DRINK AND EAT. SHE IS GETTING JEVITY 1.5 TUBE FEEDING FOR A TOTAL OF 460 ML OVER 8 HOURS, SHOULD STOP THIS EVENING, WITH WATER FLUSHES - THROUGH THE G TUBE. RESIDUALS A FEW HOURS AFTER STARTING THE TF --WAS 10 ML. FORMULA COLORED.
--- NOTE | 2020-04-27 21:21 | NUR ---
ASSUMED PT CARE FROM RIGOBERTO CANTU AT 1915 PT SITTING UP IN CHAIR. NONVERBAL AT BASELINE. PER REPORT PT IS DEAF AND COMMUNICATES VIA COMMUNICATION BOARD. PT MOANS AND POINTS TO WHERE HER PAIN IS, WHICH IS CHEST AND RIGHT SIDE OF NECK WHERE CENTRAL LINE WAS RECENTLY REMOVED. PT HAS ABDOMINAL BINDER IN PLACE WITH TUBE FEEDING INFUSING PER ORDERS VIA PEG TUBE. NS TKO VIA 18G TO ALICIA. BEDOLLA CATHETER IS PATENT AND DRAINING CLEAR, MAYRA COLORED URINE TO GRAVITY. PT C/O PAIN; HOWEVER, PER REPORT PT ONLY HAS FENTANYL 25MCG EVERY HOURS NEEDED, WHICH SHE HAS BEEN GIVEN 7-8X ON DAY SHIFT. THEREFORE, PLACED CALL TO MAXIMILIAN WATT REGARDING PT'S HOME DOSE OF OXYCODONE IS 30MG EVERY 6 HOURS PRN, WELL XANAX 1MG BID. ORDERS TO REINSTATE OXYCODONE 15MG PER TUBE Q6 PRN, WELL XANAX 1MG PER TUBE BID, AND NARCAN ORDERS JUST IN CASE. PT MEDICATED WITH FENTANYL FOR SHORT ACTING RELIEF PER ORDERS, AND OXY AND XANAX ADMINSTERED WITH HS MEDICATIONS PER ORDERS. CALL LIGHT WITHIN REACH; REITERATED TO PT THAT IF I WAS NEEDED I WOULD BE RIGHT OUTSIDE HER DOOR AND SHOWED HER WHAT BUTTON TO PUSH IF SHE NEEDED ME. PT NODDED HEAD THAT SHE UNDERSTOOD. SHE IS CURRENTLY SLEEPING AT THIS TIME. VSS, SEE FLOWSHEET. NSR WITH HR 70-80'S. BP'S DECREASED FROM SBP 170 DOWN TO 120'S. PT APPEARS COMFORTABLE AT THIS TIME.
[2020-04-28 04:27] LABS: Anion Gap 3 mmol/L (6-16); Blood Urea Nitrogen 14 mg/dL (8-24); Bun/Creatinine Ratio 18.2 (12.0-20.0); CO2, Blood 28 mmol/L (21-32); Calcium, Blood 8.4 mg/dL (8.5-10.1); Chloride, Blood 112 mmol/L (98-108); Creatinine, Blood 0.77 mg/dL (0.40-1.00); Glomerular Filtration Rate >60 (60-); Glucose, Blood 97 mg/dL (70-99); Magnesium, Blood 2.1 mg/dL (1.6-2.4); Phosphorus, Blood 2.6 mg/dL (2.5-4.9); Potassium, Blood 4.3 mmol/L (3.5-5.5); Sodium, Blood 143 mmol/L (136-145)
--- NOTE | 2020-04-28 05:59 | NUR ---
END OF SHIFT SUMMARY PT SLEPT MOST OF SHIFT. ONLY REQUIRED ONE DOSE OF OXYCODONE 15MG T/O SHIFT TO MANAGE PAIN. HOME RECONCILE LIST SHOWS PT USUALLY TAKES 30MG OF OXY Q6 PRN; HOWEVER, PT SEEMED TO BE VERY DROWSY OFF THE 15MG THAT WAS GIVEN AT START OF SHIFT, WHICH WAS EFFECTIVE IN MANAGING PAIN T/O ENTIRE NIGHT. PT ABLE TO DEEP BREATHE AND COUGH BETTER TOO; UTILIZING PILLOW TO SPLINT AGAINST CHEST. COUGH IS STILL WEAK AND NOT ABLE TO PRODUCE ANY SPUTUM; HOWEVER, PT ISN'T FEARFUL TO COUGH. SHE MAY EVEN BENEFIT FROM A LOWER OXY DOSE. PT WAS ALSO MEDICATED WITH 1MG OF XANAX, SHE GENERALLY TAKES 1MG BID AT HOME; HOWEVER, THIS ALSO SEEMED TO BE TOO MUCH FOR PT. VSS REMAINED STABLE AND PT WAS EASILY AROUSABLE TO ANY STIMULI; HOWEVER, SHE WOULD QUICKLY FALL BACK TO SLEEP/NOD OFF SHORTLY AFTER CARES WERE GIVEN. PT MAY ALSO BENEFIT FROM A LOWER XANAX DOSE. LUNG SOUNDS REMAIN COARSE/RHONCHI T/O. NSR WITH HR 60'S. PEG TUBE REMAINS PATENT; TUBE FEEDING COMPLETED AT APPROXIMATELY 2200; RESIDUALS <10CC. TOLERATED FEED WELL. BEDOLLA CATHETER REMAINS PATENT AND DRAINING DARK MAYRA COLORED URINE TO GRAVITY. MINIMAL OUTPUT THIS SHIFT; 200CC. PT CONTINUES TO COMMUNICATE VIA COMMUNICATION BOARD AND SIGN LANGUAGE. CALL LIGHT WITHIN REACH AND PT ABLE TO ACKNOWLEDGE HOW TO USE. WILL CONTINUE TO MONITOR UNTIL REPORT IS HANDED OFF TO ONCOMING RN.
--- NOTE | 2020-04-28 08:15 | NUR ---
ASSUMED CARE RECEIVED REPORT FROM RIGOBERTO SALES. PT IS LYING IN BED DROWSY - IN AND OUT OF SLEEP. SHE IS ON 5 L OF OXYGEN OF LAST NIGHT TO MAINTAIN O2 SATS IN 90's. NS TKO INFUSING THROUGH LEFT AC IV. PATENT BEDOLLA , DRAINING YELLOW/MAYRA URINE. BED LOW AND LOCKED. CALL LIGHT WITHIN REACH.
--- NOTE | 2020-04-28 11:26 | NUR ---
SB 1606 DISCUSSION WITH Ed UPDATED PT'S [id number] ON SB 1606, PT COMMUNICATES VIA SIGN LANGUAGE AND REQUIRES ASSISTANCE WITH ADL NEEDS AT HOME. JessicaIKarleyL AWARE AND HAPPY THAT SOMEONE CAN BE WITH PATIENT AT ALL TIMES.
--- NOTE | 2020-04-28 11:29 | NUR ---
UPDATE PT HAS BEEN NASOTRACHEAL SUCTIONED TWICE TODAY. HER COUGH IS STILL FAIRLY WEAK, BUT SEEMS TO BE IMPROVING WHEN SHE HUGS ONTO A PILLOW. HER SAT's WILL DROP TO THE HIGH 80's AND SHE STARTS TO SOUND GURGLY. BUT AFTER SUCTIONING (MODERATE AMOUNT OF THICK, DUNNE - STREAKED WITH A LITTLE RED - SECRETIONS) HER SAT's IMPROVE AND SHE SOUNDS MUCH BETTER WHEN BREATHING. SHE WAS PUT ON 5L OF OXYGEN OVERNIGHT, BUT HAS BEEN TITRATED DOWN THROUGHOUT THE MORNING, CURRENTLY ON 2L, SAT'ING MID-HIGH 90s. TUBE FEEDING WAS STARTED AT 55 ML/HR, FOR OVER THE COURSE OF 15 HOURS PER ORDER WITH Q3H WATER FLUSHES FOR 195 ML/FLUSH. RESIDUALS THIS MORNING WERE MINIMAL (30 ML OF FORMULA COLORED). SHE CONTINUES TO BE A LITTLE DROWSY THIS MONRNING, BROTHER IN-LAW IS PRESENT AND ASSISTING WITH COMMUNICATING WITH PT. BED IS LOW AND LOCKED. CALL LIGHT WITHIN REACH.
--- NOTE | 2020-04-28 11:33 | NUR ---
XEDICATION CLARIFICATION I TALKED WITH BROTHER IN-LAW REGARDING HER INTAKE OF OXYCODONE AND XANAX AT HOME - HE INFORMED ME THAT THE PT TAKES 30 MG FAIRLY REGULARLY IN THE MORNING AND EVENING, AND ONLY SOMETIMES DURING THE DAY. HE STATED THAT XANAX IS ABOUT THE SAME DEAL, BUT NEVER AT THE SAME TIME - HE SAYS. HE LIKES TO OFFSET ADMINISTRATION OF THE MEDICATIONS. IN THE EVENING HE WILL GIVE THE OXYCODONE AND WAIT AN HOUR TO SEE IF SHE NEEDS THE XANAX -- PER BROTHER IN-LAW'S REPORT. I LET HIM KNOW WHAT HAPPENED WHEN WE GAVE 15 MG OF OXYCODONE AND 1 MG OF XANAX HE BELIEVES ITS BECAUSE THEY WERE TAKEN TOGETHER. HE ALSO TOLD ME HIS (PT's SISTER) MAY NOT BE COMING IN TODAY BECAUSE HER SLEEP HABITS ARE ALL BACKWARDS, STAYING UP ALL NIGHT AND SLEEPING DURING THE DAY.
--- NOTE | 2020-04-28 13:48 | NUR ---
UPDATE PT ON 1L OXYGEN, SAT'ING MID TO HIGH 90's. SHE IS RESTING CURRENTLY WITH STABLE VITALS. TF CONTINUES TO INFUSE AT 55 ML/HR. HER ENERGY PROJECT MANAGER BROTHER IN-LAW LEFT BUT SAID HE WOULD BE BACK LATER. NO ISSUES AT THIS TIME. WILL CONTINUE TO MONITOR. BED LOW AND LOCKED. CALL LIGHT WITHIN REACH.
--- NOTE | 2020-04-28 17:49 | NUR ---
SHIFT SUMMARY PT IS IN BED RESTING ON 1L NC (WERENT ABLE TO TAKE HER OFF COMPLETELY DUE TO DROP IN SATs). BEDOLLA CATHETER TAKEN OUT - SHE HAS YET TO VOID SINCE. PT GOT TO CHAIR AND BACK TODAY WITH 2+ HELP. SHE SEEMS TO BE MUCH MORE DROWSY/SLEEPY TODAY, THAN YESTERDAY. VITALS REMAIN STABLE, HR 60-70's. BP IMPROVED AFTER MORNING LOPRESSOR DOSE. PT RECIEVING JEVITY 1.5 VIA G TUBE AT 55 ML/HR, FOR A TOTAL OF 15 HOURs, WITH Q3H 195 ML OF WATER FLUSHES. THIS IS HOW SHE GETS FED AT HOME. SHE WAS NT SUCTIONED 3-4 TIMES TODAY, THICK-DUNNE SECRETIONS, AND HER COUGH IS GETTING STRONGER DAY WENT ON. BROTHER IN-LAW CAME BY FOR A FEW HOURS, THAN LEFT. NO OTHER VISITER/KEYBOARD OPERATOR CAME BY. BED LOW AND LOCKED. CALL LIGHT WITHIN REACH.
--- NOTE | 2020-04-28 22:21 | NUR ---
ASSUMED PT CARE FROM RIGOBERTO CANTU AT 1915 PT SLEEPING IN BED UPON ASSUMPTION OF CARE. EASILY AROUSABLE TO STIMULI. PT IS CURRENTLY ON 1L VIA NC; BIOX >90%. CYCLIC TUBE FEEDING INFUSING AT 55LS/HR WITH WATER FLUSHES 195CC EVERY THREE HOURS. ABDOMINAL BINDER IN PLACE. C/O PAIN TO CHEST AND NECK. PLACED CALL TO MAXIMILIAN WATT IN REGARDS TO LOWERING OXY DOSE PER REPORT, PT SLEPT T/O ENTIRE DAY SHIFT AND WAS NEVER MEDICATED FOR PAIN D/T DROWSINESS FROM LAST NIGHTS DOSE OF OXY 15MG. NEW ORDERS FOR OXYCODONE 5MG EVERY 4 HOURS NEEDED. PT IS CURRENTLY SLEEPING IN BED AND APPEARS COMFORTABLE AT THIS TIME. VSS, SEE FLOWSHEET. CALL LIGHT WITHIN REACH; WILL CONTINUE TO MONITOR.
[2020-04-29 03:33] LABS: Hematocrit 32.5 % (33.0-51.0); Hemoglobin 10.1 g/dL (11.5-16.0); Mean Corpuscular HGB 29.8 pg (26.0-34.0); Mean Corpuscular HGB Conc 31.1 g/dL (31.5-36.5); Mean Corpuscular Volume 96 fL (80-100); Mean Platelet Volume 11.2 fL (9.1-12.4); Platelet Count 127 K/mm3 (150-400); RDW Coefficient Variation 13.2 % (11.7-14.2); RDW Standard Deviation 46.9 fL (35.1-46.3); Red Blood Cell Count 3.39 M/mm3 (3.80-5.20); White Blood Cell Count 6.55 K/mm3 (4.00-11.30)
[2020-04-29 03:47] LABS: Albumin, Blood 2.4 g/dL (3.4-5.0); Anion Gap 1 mmol/L (6-16); Blood Urea Nitrogen 12 mg/dL (8-24); Bun/Creatinine Ratio 19.5 (12.0-20.0); CO2, Blood 31 mmol/L (21-32); Calcium, Blood 8.1 mg/dL (8.5-10.1); Chloride, Blood 111 mmol/L (98-108); Creatinine, Blood 0.62 mg/dL (0.40-1.00); Glomerular Filtration Rate >60 (60-); Glucose, Blood 100 mg/dL (70-99); Phosphorus, Blood 3.1 mg/dL (2.5-4.9); Potassium, Blood 4.4 mmol/L (3.5-5.5); Sodium, Blood 143 mmol/L (136-145)
--- NOTE | 2020-04-29 06:53 | NUR ---
END OF SHIFT SUMMARY PT HAS SLEPT ON AND OFF T/O NIGHT. NOT DROWSY WITH OXYCODONE 5MG DOSE INSTEAD OF 15MG DOSE. 5MG DOSE APPEARED TO BE EFFECTIVE FOR PAIN; MEDICATED X2 THIS SHIFT. PT HAS BEEN INCONTINENT OF BLADDER SINCE REMOVAL OF BEDOLLA CATHETER. PT HAS BEEN TITRATED UP AND DOWN ON OXYGEN T/O NIGHT. CPT AND NT SUCTIONING PERFORMED BY RT WITH MINIMAL SECRETIONS PRODUCED. LUNG SOUNDS REMAIN CLEAR TO BILATERAL UPPER LOBES AND SLIGHTLY COARSE/DIMINISHED TO BILATERAL LOWER LOBES. SHE IS CURRENTLY ON ROOM AIR WITH OXYGEN SATURATIONS >90%. REMOVED ABDOMINAL BINDER D/T CAUSING IRRITATED, RED OPEN AREAS UNDER BILATERAL BREASTS. PT UNDERSTANDING NOT TO PULL AT PEG TUBE. CYCLIC FEEDINGS ENDED LATER IN THE SHIFT; SEE I/O SHEET. MINIMAL RESIDUALS. PT REMAINS MUTE/NONVERBAL AND COMMUNICATES VIA COMMUNICATION BOARD ADEQUATELY; SHE IS ABLE TO MAKE HER BASIC NEEDS KNOWN.
--- NOTE | 2020-04-29 18:03 | NUR ---
SHIFT SUMMARY PATIENT TRANSFER FROM ICU TODAY. SHE DID HAVE NAUSEA AND VOMITING. SPOKE WITH DR. STRINGER ABOUT THE PATIENT AND THE TUBE FEEDINGS. SLOWED THEM DOWN PER CLINICAL JUDGEMENT DUE TO PATIENT NOT TOLERATING THE RATE AND THE TURNING. SHE DENIES ANY CHEST PAIN OR SHORTNESS OF BREATH PATIENT IS NONVERBAL, CAN READ LIPS, SIGNS FLUENTLY. FAMILY IS CAREGIVERS. AT THIS TIME NO ACUTE CONCERNS.
--- NOTE | 2020-04-30 04:37 | NUR ---
SHIFT SUMMARY ASSUMED CARE OF PT AT 1900. PT IS VIRI, ORIENTATION CANNOT BE ASSESS DUE TO INABILITY TO SPEAK. PT USES SIGN LANGUAGE TO SPEAK BUT CAN UNDERSTAND LIPS AND HEAR YOU SPEAK. HEART SOUNDS REGULAR, LUNG SOUNDS CLEAR WITH DIMINISHED BASES. PT C/O PAIN ON PEG TUBE SITE AND IN HER CHEST. MEDICATED PER EMAR. THERE WAS 40CC OF RESIDUAL. PT C/O NEASEA DURING THE NIGHT, MEDICATED PER EMAR. PT WAS INCONTINENT OF URINE T/O THE NIGHT. PT DID NOT SLEEP MUCH DURING THE NIGHT. CALL LIGHT IN REACH, BED IN LOWEST POSITION, WILL CONTINUE TO MONITOR UNTIL DAYSHIFT NURSE ARRIVES.
[2020-04-30 05:10] LABS: BASOPHILS ABSOLUTE AUTO 0.02 K/mm3 (0.00-0.23); BASOPHILS PERCENT AUTO 0 % (0-2); EOSINOPHILS PERCENT AUTO 6 % (0-6); Hemoglobin 10.2 g/dL (11.5-16.0); IMMATURE GRAN ABSOLUTE AUTO 0.02 K/mm3 (0.00-0.10); IMMATURE GRAN PERCENT AUTO 0 % (0-1); LYMPHOCYTES ABSOLUTE AUTO 1.55 K/mm3 (0.84-5.20); LYMPHOCYTES PERCENT AUTO 25 % (21-46); MONOCYTES ABSOLUTE AUTO 0.69 K/mm3 (0.16-1.47); MONOCYTES PERCENT AUTO 11 % (4-13); Mean Corpuscular HGB 30.2 pg (26.0-34.0); Mean Corpuscular HGB Conc 31.9 g/dL (31.5-36.5); Mean Corpuscular Volume 95 fL (80-100); Mean Platelet Volume 11.2 fL (9.1-12.4); NEUTROPHILS ABSOLUTE AUTO 3.58 K/mm3 (1.96-9.15); NEUTROPHILS PERCENT AUTO 57 % (41-73); Platelet Count 147 K/mm3 (150-400); RDW Coefficient Variation 13.1 % (11.7-14.2); RDW Standard Deviation 45.2 fL (35.1-46.3); Red Blood Cell Count 3.38 M/mm3 (3.80-5.20); White Blood Cell Count 6.26 K/mm3 (4.00-11.30)
--- NOTE | 2020-04-30 17:59 | NUR ---
SHIFT SUMMARY PATIENT IS PLEASANT, ALERT AND ORIENTED. HARD OF HEARING/DEAF, SHE IS NOT TOLERATING HER TUBE FEEDINGS WELL. SHE HAS BEEN OFF MOST OF THE DAY. BUT DOES NOTE THAT SHE IS NOT SICK WHEN THEY ARE NOT ON. AND SHE DOES HAVE SOME NAUSEA WITH HER TUBE FEEDINGS. SHE HAS BEEN REEVALUATED BY DIETITIAN TODAY AND THE VOLUME AND TIME HAVE BEEN ADJUSTED. CURRENTLY SHE HAS BEEN HOOKED BACK UP TO HER TUBE FEEDING AND SHE IS TO BE UNHOOKED AT 2300.
--- NOTE | 2020-05-01 05:53 | NUR ---
SHIFT SUMMARY- PT. A&O, PLEASANT AND COOPERATIVE WITH CARE. PT. DEAF/MUTE, COMMUNICATION BOARD IN ROOM. PT. ON CYCLIC TUBE FEEDINGS LAST NIGHT, TOLERATED WELL. NO COMPAINTS OF N/V. FEEDINGS STOPPED @2300 PER ORDER. RESIDUAL OF 70ML. NO ACUTE CHANGES TO CONDITION. PT. RESTING COMFORTABLY IN BED, NO APPARENT DISTRESS NOTED. CALL LIGHT WITHIN REACH AND SIDE RAILS UPX2. WILL CONT TO MONITOR.
[2020-05-01] MEDS ORDERED: ROXICODONE5 MG PT (11:09)
[2020-05-01] MEDS ORDERED: LIDO700A20 TOP (11:10)
[2020-05-01] MEDS ORDERED: AMOCLA875 PT (11:11)
[2020-05-01] MEDS ORDERED: PROBIOTIC & AC1 EACH PT (11:11)
--- NOTE | 2020-05-01 11:29 | NUR ---
DISCHARGE SUMMARY PATIENT INSTRUCTIONS GIVEN TO THE BROTHER. PATIENT INSTRUCTIONS RELAYED TO PATIENT BY THE BROTHER. ALL MEDICATIONS SENT TO THE PHARMACY OF CHOICE. IV REMOVED. CATHETER INTACT FROM IV. NO ACUTE CONCERNS AT TIME OF DISCHARGE. PATIENT WHEELED OUT BY QUILL FIXER.
== END 2020-05-01 11:30 | disposition home health service (06) | DRG 871 ==
LOC: ER 12:34 → ICUE 13:49 → ICUW 13:49 → ICUE 14:09 → MEDS 04-29 12:56
PROVIDERS: Emergency Medicine; Family Medicine; Internal Medicine; Internal Medicine Critical Care Medicine; ADMIT Internal Medicine
PROC: 05HM33Z Insertion of Infusion Device into Right Internal Jugular Vein, Percutaneous Approach (ICD-10-PCS; principal; 2020-04-25)
PROC: 0BC38ZZ Extirpation of Matter from Right Main Bronchus, Via Natural or Artificial Opening Endoscopic (ICD-10-PCS; 2020-04-25)
PROC: 0B9 Respiratory System, Drainage (ICD-10-PCS; 2020-04-25)
PROC: 0B9 Respiratory System, Drainage (ICD-10-PCS; 2020-04-25)
PROC: 5A1945Z Respiratory Ventilation, 24-96 Consecutive Hours (ICD-10-PCS; 2020-04-25)
DX: A41.51 Sepsis due to Escherichia coli [E. coli] (principal); J96.21 Acute and chronic respiratory failure with hypoxia; R65.21 Severe sepsis with septic shock; R53.2 Functional quadriplegia; J69.0 Pneumonitis due to inhalation of food and vomit; R47.01 Aphasia; G91.9 Hydrocephalus, unspecified; T85.528A Displacement of other gastrointestinal prosthetic devices, implants and grafts, initial encounter; E87.2 Acidosis; J98.11 Atelectasis; G80.9 Cerebral palsy, unspecified; G43.909 Migraine, unspecified, not intractable, without status migrainosus; E03.9 Hypothyroidism, unspecified; F32.9 Major depressive disorder, single episode, unspecified; H91.90 Unspecified hearing loss, unspecified ear; Z96.642 Presence of left artificial hip joint; G40.909 Epilepsy, unspecified, not intractable, without status epilepticus; I10 Essential (primary) hypertension; D69.6 Thrombocytopenia, unspecified
CPT/HCPCS: 31720; 36415; 36556; 36600; 51702; 71045; 71250; 80047; 80048; 80053; 80069; 80175; 81001; 82803; 82947; 83605; 83735; 84100; 84484; 85014; 85025; 85027; 87040; 87070; 87077; 87086; 87186; 87205; 88108; 88305; 88312; 93005; 93010; 93306; 94002; 94644; 94660; 94667; 94668; 96374-59; 96375-59; 99285-25; A9270-GY; C1751; C1769; C1894; C9113; J0171; J0295; J1650; J1953; J2250; J2405; J2704; J3010; J3475; J3480; J7030; J7050; J7060; J7120

== ENCOUNTER 2021-02-22 19:57 | Emergency (ER) | payer OTHER ==
[~2021-02-22] VITALS: Ht 170.2 cm; Wt 54.4 kg
[~2021-02-22 19:57] MED LIST changes: +AMOCLA875 PT; +FERREX 150150 M1 PO; +LIDO700A20 TOP; +MULTI VITAMIN1 EACH PO; +PROBIOTIC & AC1 EACH PT; +ROXICODONE5 MG PT
== END 2021-02-22 21:32 | disposition left against medical advice (07) ==
LOC: ER 19:57
DX: K94.20 Gastrostomy complication, unspecified (principal); Z53.21 Procedure and treatment not carried out due to patient leaving prior to being seen by health care provider
CPT/HCPCS: 99282

== ENCOUNTER 2021-02-23 05:41 | Emergency (ER) | payer OTHER ==
[~2021-02-23] VITALS: Ht 170.2 cm; Wt 54.4 kg
== END 2021-02-23 07:23 | disposition home or self-care (01) ==
LOC: ER 05:41
DX: Z43.1 Encounter for attention to gastrostomy (principal); I10 Essential (primary) hypertension; Z79.899 Other long term (current) drug therapy; Z91.09 Other allergy status, other than to drugs and biological substances; Z91.041 Radiographic dye allergy status; Z88.5 Allergy status to narcotic agent
CPT/HCPCS: 43762; 74018; 99282-25

== ENCOUNTER 2021-03-28 21:16 | Inpatient (IN) | payer OTHER ==
[~2021-03-28] VITALS: Ht 162.6 cm; Wt 57.9 kg
[2021-03-28 21:45] LABS: BASOPHILS ABSOLUTE AUTO 0.02 K/mm3 (0.00-0.23); BASOPHILS PERCENT AUTO 1 % (0-2); Hematocrit 46.3 % (33.0-51.0); Hemoglobin 15.1 g/dL (11.5-16.0); LYMPHOCYTES ABSOLUTE AUTO 0.47 K/mm3 (0.84-5.20); LYMPHOCYTES PERCENT AUTO 13 % (21-46); MONOCYTES ABSOLUTE AUTO 0.23 K/mm3 (0.16-1.47); MONOCYTES PERCENT AUTO 6 % (4-13); Mean Corpuscular HGB 31.1 pg (26.0-34.0); Mean Corpuscular HGB Conc 32.6 g/dL (31.5-36.5); Mean Corpuscular Volume 95 fL (80-100); Mean Platelet Volume 11.8 fL (9.1-12.4); Platelet Count 254 K/mm3 (150-400); RDW Coefficient Variation 13.5 % (11.7-14.2); RDW Standard Deviation 47.8 fL (35.1-46.3); Red Blood Cell Count 4.86 M/mm3 (3.80-5.20); White Blood Cell Count 3.57 K/mm3 (4.00-11.30)
[2021-03-28 21:46] LABS: EOSINOPHILS ABSOLUTE AUTO 0.01 K/mm3 (0.00-0.68); EOSINOPHILS PERCENT AUTO 0 % (0-6); IMMATURE GRAN PERCENT AUTO 0 % (0-1); NEUTROPHILS ABSOLUTE AUTO 2.84 K/mm3 (1.96-9.15); NEUTROPHILS PERCENT AUTO 80 % (41-73)
[2021-03-28 22:16] LABS: Alanine Aminotransfer (ALT/SGP 19 U/L (12-78); Albumin, Blood 3.4 g/dL (3.4-5.0); Albumin/Globulin Ratio 0.7 (0.8-1.8); Alk Phos 72 U/L (50-136); Anion Gap 7 mmol/L (6-16); Aspartate Aminotrans (AST/SGOT 15 U/L (12-37); Bilirubin, Total 0.2 mg/dL (0.1-1.0); Blood Urea Nitrogen 35 mg/dL (8-24); Bun/Creatinine Ratio 35.2 (12.0-20.0); CO2, Blood 23 mmol/L (21-32); Calcium, Blood 8.6 mg/dL (8.5-10.1); Chloride, Blood 107 mmol/L (98-108); Globulin, Blood 4.9 g/dL (2.2-4.0); Glomerular Filtration Rate >60 (60-); Glucose, Blood 115 mg/dL (70-99); Potassium, Blood 4.1 mmol/L (3.5-5.5); Sodium, Blood 137 mmol/L (136-145); Total Protein, Blood 8.3 g/dL (6.4-8.2); Troponin I <0.015 ng/mL (0.000-0.040)
[2021-03-28 22:37] LABS: Source, Urine Catheter
[2021-03-28 22:40] LABS: Appearance, Urine Clear (Clear); Bilirubin, Urine Neg (Neg); Blood, Urine 3+ (Neg); Color, Urine Yellow (P-Yellow); Glucose Qualitative, Urine Neg (Neg); Ketones, Urine Neg (Neg); Leukocyte Esterase, Urine 1+ (Neg); Nitrite, Urine Neg (Neg); Protein, Urine 2+ (Neg); Urobilinogen, Urine NORM (Normal); pH, Urine 6.5 (5.0-8.0)
[2021-03-28 22:55] LABS: Bacteria Many /hpf; Squamous Epithelial Cells Mod /hpf (Few)
[2021-03-29 06:12] LABS: Hematocrit 35.5 % (33.0-51.0); Hemoglobin 11.3 g/dL (11.5-16.0); Mean Corpuscular HGB 30.9 pg (26.0-34.0); Mean Corpuscular HGB Conc 31.8 g/dL (31.5-36.5); Mean Corpuscular Volume 97 fL (80-100); Mean Platelet Volume 11.6 fL (9.1-12.4); Platelet Count 186 K/mm3 (150-400); RDW Coefficient Variation 13.5 % (11.7-14.2); RDW Standard Deviation 48.1 fL (35.1-46.3); Red Blood Cell Count 3.66 M/mm3 (3.80-5.20); White Blood Cell Count 4.42 K/mm3 (4.00-11.30)
[2021-03-29 06:20] LABS: Anion Gap 6 mmol/L (6-16); Blood Urea Nitrogen 30 mg/dL (8-24); Bun/Creatinine Ratio 31.5 (12.0-20.0); CO2, Blood 24 mmol/L (21-32); Calcium, Blood 7.1 mg/dL (8.5-10.1); Chloride, Blood 112 mmol/L (98-108); Creatinine, Blood 0.95 mg/dL (0.40-1.00); Glomerular Filtration Rate >60 (60-); Glucose, Blood 104 mg/dL (70-99); Potassium, Blood 4.1 mmol/L (3.5-5.5); Sodium, Blood 142 mmol/L (136-145)
[2021-03-29 06:57] LABS: BAND PERCENT MAN 47 % (0-8); BASOPHILS PERCENT MAN 0 % (0-2); EOSINOPHILS PERCENT MAN 0 % (0-6); LYMPHOCYTES ABSOLUTE MAN 0.39 K/mm3 (0.84-5.20); LYMPHOCYTES PERCENT MAN 9 % (21-46); METAMYELOCYTE ABSOLUTE MAN 0.04 K/mm3 (0.00-0.00); METAMYELOCYTE PERCENT MAN 1 % (0-0); MONOCYTES ABSOLUTE MAN 0.13 K/mm3 (0.16-1.47); MONOCYTES PERCENT MAN 3 % (4-13); NEUTROPHILS ABSOLUTE MAN 3.84 K/mm3 (1.96-9.15); SEG NEUTROPHILS PERCENT MAN 40 % (41-73); TOTAL CELLS COUNTED 100
--- NOTE | 2021-03-29 09:18 | NUR ---
PT ARRIVAL TO UNIT... PT ARRIVED ON UNIT FROM THE ED VIA GURNEY. PT WAS SLID OVER TO THE ICU BED WIHT 4 STAFF. PT IS ANXIOUS AND ATTEMPTING TO TELL STAFF SOMETHING BUT STAFF ARE UNABLE TO UNDERSTAND WHAT THE PT IS TRYING TO TELL US. PT IS GRIMACING AND ANXIOUS. PT ARRIVED ON UNIT WITH THE LEVOPHED ON STAND BY SINCE 0600 PER HOUSEKEEPING DEPARTMENT WORKER REPORT. PT'S BP STABLE WITH SBPs IN THE 120'S-140'S. PT IS ON 10L HI FLOW WITH O2 SATS >90%. L/S COARSE T/O DIM IN THE BASES. RR 20'S EVEN WITH SOME GRUNTING AND ACCESSORY MUSCLE USE. BT VERY HYPOACTIVE, J TUBE IS IN PLACE AND NOT BEING USED AT THIS TIME FOR MEDS OR TUBE FEEDS. TEMP BEDOLLA IS PATENT AND DRAINING TO GRAVITY, PT'S TEMP ON ARRIVAL IS 100.2, PT'S SKIN IS COOL AND DIAPHORETIC. PT HAS NO SKIN ISSUES EXCEPT AN ABRASION ON HER UPPER MID CHEST. PT HAS NS RUNNING AT 100MLS/HR. PT HAS RIGHT FEMORAL CENTRAL LINE WITH SOME OLD BLEEDING AT THE SITE. NO SWELLING OR HEMATOMA NOTED. WILL CONTINUE TO MONITOR.
--- NOTE | 2021-03-29 12:22 | NUR ---
PT UPDATE... PT'S O2 WAS AT 10L HI FLOW, THIS WAS SLOWLY TITRATED DOWN TO 5L NC WITH O2 SATS >90%, AT APROX 1150 PT'S O2 SATS DROPPED DOWN TO THE LOW 80'S HIGH 70'S WITH A RR IN THE 40'S. O2 WAS INCREASED BACK TO 10L HI FLOW KEEPING THE PT'S O2 SATS 92-94%. PT'S RR CONTINUES TO BE IN THE 30'S-40'S. UPON ASSESSMENT PT'S L/S HAVE GOTTEN MORE COARSE WITH NEW CRACKELS NOTED. DR. WAKEFIELD NOTIFIED AND NEW ORDERS FOR LASIX AND NEBS WERE OBTAINED. WILL CONTINUE TO MONITOR.
[2021-03-29] MEDS ORDERED: ONDA4ODT MM (14:45)
[2021-03-29] MEDS ORDERED: Vitamin D2000 UNIT PO (14:47)
--- NOTE | 2021-03-29 19:03 | NUR ---
SHIFT SUMMARY... PT HAS BEEN ON 10L HI FLOW NC FOR MOST OF THIS SHIFT WITH O2 SATS >90%, THERE WERE A FEW TIMES THAT THE PT'S O2 HAS BEEN TITRATED DOWN FROM 10L TO 3 L NC BUT THE PT BECOMES VERY ANXIOUS AND HER O2 SATS DROP WITH THE INCREASED RESPIRATORY RATE AND WORK OF BREATHING. PT'S L/S HAVE BEEN VERY COARSE WITH RHONCHI AND CRACKELS. PT HAS HAD A FAMILY MEMBER AT THE BEDSIDE TO HELP WITH COMMUNICATION AND CARE WITH THE PT. PT'S TEMP HAS BEEN 100.4-99.3. PT'S TUBE FEEDINGS WERE STARTED PER PT'S HOME FORMULA AND RATE OF 65MLS/HR WITH 170MLS FLUSHES OF H2O Q3 HRS. AT ONE POINT THE PT HAD TAKEN OFF THE NC, HER O2 SATS DROPPED QUICKLY DOWN TO 62% AND IT TOOK THE PT APROX 5-8 MINS TO RECOVER. PER THE PT'S FAMILY THE PT DOES HAVE A HABIT OF PULLING ON TUBS/CORDS. PT HAS LR RUNNING AT 100MLS/HR PER ORDERS, BEDOLLA IS PATENT AND DRAINING TO GRAVITY. PT HAS NOT HAD A BM THIS SHIFT. CALL LIGHT IN REACH WILL CONTINUE TO MONITOR UNTIL REPORT IS GIVEN TO ONCOMING RN.
[2021-03-30 03:43] LABS: Hematocrit 33.6 % (33.0-51.0); Mean Corpuscular HGB 31.4 pg (26.0-34.0); Mean Corpuscular HGB Conc 32.7 g/dL (31.5-36.5); Mean Corpuscular Volume 96 fL (80-100); Platelet Count 175 K/mm3 (150-400); RDW Coefficient Variation 14.2 % (11.7-14.2); RDW Standard Deviation 49.7 fL (35.1-46.3); White Blood Cell Count 11.79 K/mm3 (4.00-11.30)
[2021-03-30 04:02] LABS: Alanine Aminotransfer (ALT/SGP 17 U/L (12-78); Albumin, Blood 2.5 g/dL (3.4-5.0); Albumin/Globulin Ratio 0.6 (0.8-1.8); Alk Phos 38 U/L (50-136); Anion Gap 5 mmol/L (6-16); Aspartate Aminotrans (AST/SGOT 29 U/L (12-37); Bilirubin, Total 0.2 mg/dL (0.1-1.0); Blood Urea Nitrogen 20 mg/dL (8-24); Bun/Creatinine Ratio 29.3 (12.0-20.0); CO2, Blood 26 mmol/L (21-32); Calcium, Blood 7.5 mg/dL (8.5-10.1); Chloride, Blood 112 mmol/L (98-108); Creatinine, Blood 0.68 mg/dL (0.40-1.00); Globulin, Blood 3.9 g/dL (2.2-4.0); Glomerular Filtration Rate >60 (60-); Glucose, Blood 93 mg/dL (70-99); Potassium, Blood 3.6 mmol/L (3.5-5.5); Sodium, Blood 143 mmol/L (136-145); Total Protein, Blood 6.4 g/dL (6.4-8.2)
--- NOTE | 2021-03-30 06:01 | NUR ---
END OF SHIFT SUMMARY: PATIENT HAS BEEN ANXIOUS ALL NIGHT AND O2 HAS BEEN FLUCTUATING DUE TO THAT. PATIENT WILL DESAT TO MID 70S AND TAKES A FEW MINUTES TO RECOVER TO LOW 90S. PATIENT GOT VERY AGITATED THIS MORNING AND WAS SATING IN LOW 80S FOR A SMALL PERIOD OF TIME AND ALSO SOUNDED COURSE THROUGHOUT. RT WAS CALLED FOR DEEP SUCTIONING. LUNG SOUNDS CLEARED UP, ATIVAN GIVEN AND PATIENT HAS FINALLY GOTTEN SO SLEEP. O2 AT 97% ON HF NC THAT HAS BEEN SET AT 15L DUE TO FREQUENT FLUCTUATION. WILL CONTINUE TO ASSESS NEEDS AND TITRATE DOWN. CAREGIVER-SON CHRISTO AT BEDSIDE ALL NIGHT. PATIENT HAS BEEN ST AND BP HAS ACTUALLY BEEN ELEVATED. CRITICAL LACTATE X2 OF 3.9. 250ML OF LR GIVEN BUT NO OTHER ORDERS. TURNED Q2 FOR COMFORT. OXY GIVEN FOR PAIN. FEEDS INFUSING
--- NOTE | 2021-03-30 07:21 | NUR ---
assumed care of this pt this morning. She is a/o to self and can nod for "yes" or "no". Her son/caregiver is at the bedside. High flow O2 is on at 15 LPM and her O2 Sat is at 100%. Peg tube is in place on a continuous pump. Zaidi is patent. Pt and caregiver are able to make pt needs known and pt has soft touch with her reach.
--- NOTE | 2021-03-30 09:30 | NUR ---
Pt tachycardic and tachypneic and Dr Fraire was notofied. He came and saw the pt at the bedside and spoke with the family. gave order for Bipap and RT was notified. Rt is now at the bedside setting up the Bipap. o2 sats remain high 90's to 100. Pt is sitting up in bed with HOB elevated and caregiver is at her side.
[2021-03-30 09:37] LABS: Base Excess Venous -1.9 mmol/L; Bicarbonate Venous 21.6 mmol/L (24.0-30.0); PCO2 Venous 62.5 mmHg (38-42); PO2 Venous 37.1 mmHg (38-42)
[2021-03-30 09:38] LABS: pH Blood Venous 7.22 (7.34-7.37)
--- NOTE | 2021-03-30 10:30 | NUR ---
INTUBATION: DR. BOTELLO TO BEDSIDE FOR INTUBATION. RT MARILOU AND RT DEMETRIA AT BEDSIDE. 2MG VERSED IV PUSH GIVEN, 50MG ROCURONIUM GIVEN, 20MG ROCURONIUM GIVEN AT 1007. BP DOWN TO 80/46. LR BOLUS STARTED. ATTEMPT TO INTUBATE WITH 7.5 ET TUBE UNSUCCESSFUL. ORAL AIRWAY PLACED AND PT BAGGED BY DR. BOTELLO. ATTEMPT AGAIN TO INTUBATE WITH GLIDESCOPE AND 7.5 ET TUBE UNSUCCESSFUL. ORAL AIRWAY RE-PLACED AND PT AGAIN BAGGED. PT SUCCESSFULLY INTUBATED WITH BOUGIE, GLIDESCOPE AND 7.0 ET TUBE AT 1020. TUBE AT 24 CM AT LIP. POSITIVE COLOR CHANGE AND BILATERAL BREATH SOUNDS. TUBE SECURED BY RT. XRAY TO ROOM.
--- NOTE | 2021-03-30 11:56 | NUR ---
ASSUMED CARE REPORT RECEIVED FROM RIGOBERTO SUMNER AROUND 1030 AND ASSUMED CARE OF PT. PT HAD JUST BEEN INTUBATED, PROPOFOL INFUSING. IV FLUIDS STOPPED PER DR. BOTELLO. TUBE FEEDS STOPPED PRE INTUBATION AND OIL HOUSE ATTENDANT CAME BY AND SAID SHE WILL ADJUST THE FEED AND RATE. PT'S BP DROPPED POST INTUBATION TO 50/30, LEVOPHED STARTED AND HAD TO BE TITRATED UP TO 24 MCG/MIN. DR. BOTELLO INFORMED AND ORDER FOR VASOPRESSIN RECEIVED. PT'S BP STARTED TO REBOUND BEFORE VASOPRESSIN WAS STARTED AND PT STARTED WAKING UP AND GETTING AGITATED. PROPOFOL INCREASED AND LEVOPHED ABLE TO BE TITRATED DOWNT O 20MCG/MIN. PT RELAXED HER BP STARTED TO DROP AGAIN SO VASOPRESSIN STARTED. PT'S LUNGS ARE COARSE. SMALL AMT OF YELLOW FLUID SUCTIONED BY RT AND SENT TO LAB PER DR. BOTELLO'S ORDERS. PT'S BROTHER HAS BEEN IN AND OUT OF THE ROOM. HE WAS UPDATED BY DR. BOTELLO AND NURSING STAFF. ALL QUESTIONS HAVE BEEN ANSWERED.
--- NOTE | 2021-03-30 12:30 | NUR ---
Echocardiogram completed.
--- NOTE | 2021-03-30 14:14 | NUR ---
Spiritual care note: I met with Joe, pt's brother and caregiver, outside of room. He was tearful and upset about current visitor limitations. I gently explained the reason and purpose of this policy. He asked, "If she begins to , are we still limited by policy?" I assured him that, in this case, we would allow more family. It is clear that this family has taken great care of Enid over the years. Per Joe, "everyone pitches in." Joe and his son are Enid's primary caregivers. I affirmed obvious love and normalized emotions.
--- NOTE | 2021-03-30 16:02 | NUR ---
MED DISCREPANCY DR. BOTELLO ORDERED FOR 50MCG FENTANYL GIVEN PRIOR TO BRONCHOSCOPY. PULLED MEDICATION UNDER 25MCG ORDER, BUT [facility] WOULDN'T ALLOW ONLY 50MCG TO BE WASTED. ONLY 50 MCG WERE WASTED THOUGH AND 50MCG WERE GIVEN TO PT CHARTED IN [facility].
--- NOTE | 2021-03-30 17:32 | NUR ---
SHIFT SUMMARY PT'S RESPIRATORY STATUS DECLINED THIS MORNING REQUIRING HER TO BE INTUBATED. SHE BECAME HYPOTENSIVE AFTER INTUBATION AND HAS BEEN ON LEVOPHED AND VASOPRESSIN TO MAINTAIN HER PRESSURES. SHE IS SEDATED ON PROPOFOL. DR. BOTELLO DID A BRONCH THIS AFTERNOON AND SHE TOLERATED IT WELL. SHE IS SR. LUNGS HAVE BEEN CLEAR, BUT DIM IN THE BASES POST BRONCH. TUBE FEED RESTARTED PER SOLUTION STRATEGIST'S ORDERS. GRAEME GALE CL YELLOW URINE. SMALL BM THIS AFTERNOON. PT'S NEPHEW IS AT THE BEDSIDE CURRENTLY. ALL HIS QUESTIONS WERE ANSWERED. CONTINUING TO MONITOR.
--- NOTE | 2021-03-30 19:30 | NUR ---
CARE ASSUMED PT ON VENT-7.0 TUBE 23 @ [facility]. BS:EQUAL, COURSE BILAT. SXN: SCANT DUNNE SECREATIONS, WITH POSITIVE STRONG COUGH. BEDOLLA IN PLACE DRAINING BRIGHT YELLOW OUTPUT. RT FEM c.l. IN PLACE WITH PROPOFOL INFUSING @ 50, LEVO @ 14, VASO @ 0.04. VITALS STABLE. CAREGIVER AT BEDSIDE. CONTINUE ASSESSMENTS AND CARE.
--- NOTE | 2021-03-31 00:29 | NUR ---
ASSESS PT REMAINS ON VENT, PROPOFOL, LEVO, VASO, GTT INFUSING. VITALS STABLE. CAREGIVER REMAINS AT BEDSIDE. CONTINUE ASSESSMENTS AND CARE.
[2021-03-31 04:02] LABS: Hematocrit 29.3 % (33.0-51.0); Hemoglobin 9.6 g/dL (11.5-16.0); Mean Corpuscular HGB 31.1 pg (26.0-34.0); Mean Corpuscular HGB Conc 32.8 g/dL (31.5-36.5); Mean Corpuscular Volume 95 fL (80-100); RDW Coefficient Variation 14.1 % (11.7-14.2); RDW Standard Deviation 48.5 fL (35.1-46.3); Red Blood Cell Count 3.09 M/mm3 (3.80-5.20); White Blood Cell Count 17.99 K/mm3 (4.00-11.30)
[2021-03-31 04:08] LABS: Mean Platelet Volume 12.3 fL (9.1-12.4); Platelet Count 133 K/mm3 (150-400)
[2021-03-31 04:22] LABS: BAND PERCENT MAN 26 % (0-8); BASOPHILS PERCENT MAN 0 % (0-2); EOSINOPHILS PERCENT MAN 0 % (0-6); LYMPHOCYTES ABSOLUTE MAN 0.53 K/mm3 (0.84-5.20); LYMPHOCYTES PERCENT MAN 3 % (21-46); MONOCYTES ABSOLUTE MAN 0.53 K/mm3 (0.16-1.47); MONOCYTES PERCENT MAN 3 % (4-13); MYELOCYTE ABSOLUTE MAN 0.35 K/mm3 (0.00-0.00); MYELOCYTE PERCENT MAN 2 % (0-0); NEUTROPHILS ABSOLUTE MAN 16.55 K/mm3 (1.96-9.15); PLASMA CELLS PERCENT MAN 0 % (0-0); SEG NEUTROPHILS PERCENT MAN 66 % (41-73); TOTAL CELLS COUNTED 100
[2021-03-31 04:35] LABS: Alanine Aminotransfer (ALT/SGP 18 U/L (12-78); Albumin, Blood 2.2 g/dL (3.4-5.0); Albumin/Globulin Ratio 0.6 (0.8-1.8); Alk Phos 49 U/L (50-136); Anion Gap 8 mmol/L (6-16); Aspartate Aminotrans (AST/SGOT 37 U/L (12-37); Bilirubin, Total 0.4 mg/dL (0.1-1.0); Blood Urea Nitrogen 19 mg/dL (8-24); Bun/Creatinine Ratio 32.1 (12.0-20.0); CO2, Blood 24 mmol/L (21-32); Calcium, Blood 7.7 mg/dL (8.5-10.1); Chloride, Blood 103 mmol/L (98-108); Creatinine, Blood 0.59 mg/dL (0.40-1.00); Globulin, Blood 3.7 g/dL (2.2-4.0); Glomerular Filtration Rate >60 (60-); Glucose, Blood 127 mg/dL (70-99); Magnesium, Blood 1.6 mg/dL (1.6-2.4); Potassium, Blood 3.6 mmol/L (3.5-5.5); Sodium, Blood 135 mmol/L (136-145); Total Protein, Blood 5.9 g/dL (6.4-8.2)
--- NOTE | 2021-03-31 05:31 | NUR ---
ASSESS NO CHANGES, CONTINUE ASSESSMENTS AND CARE.
[2021-03-31 05:41] LABS: Phosphorus, Blood 0.5 mg/dL (2.5-4.9)
--- NOTE | 2021-03-31 06:53 | NUR ---
END OF SHIFT NOTE PT REMAINS ON VENT AC/PC NO CHANGES IN SETTINGS OVERNIGHT. PROPOFOL & VASO REMAINS UNCHANGED, LEVO TITRATED DOWN OVERNIGHT-CURRENTLY ON 10 MCG/MIN. 1 LRG BM-LIQUID. VITALS NOTED IN FLOWSHEET. CAREGIVVER REMIANED AT BEDSIDE OVERNIGHT. CRITICAL LAB PHOS CHARTED AND REPORTED TO MD SEE NEW ORDERS. CONTINUE ASSESSMENT AND CARE TILL REPORT OFF TO DAYSHIFT RN.
--- NOTE | 2021-03-31 08:05 | NUR ---
INITIAL ASSESSMENT PATIENT INTUBATED AND SEDATED. PATIENT HAS HX OF CEREBRAL PALSY. MUTE AND DEAF AT BASELINE. PATIENT RESPONDING TO NOXIOUS STIMULI. PATIENT WIGGLES HANDS AND FEET. L HAND CONTRACTED. PATIENT HAS TEMP OF 100.0 DEGREES FAHRENHEIT. FAMILY REPORTS THAT PATIENT WALKS AT HOME WITH ASSISTANCE. FAMILY REPORTS THAT PATIENT NORMALLY HAS GROSS MOVEMENT OF L ARM AND FULL FUNCTION OF R ARM. PATIENT ON VENT SETTINGS OF PC 20, PEEP 10, 50% FIO2. NO SPUTUM NOTED WITH SUCTIONING. LUNGS CLEAR THROUGHOUT. PATIENT IN SR, HR 60S TO 80S. SBP 120S TO 170S. HYPOACTIVE BS NOTED. PEG TUBE IN PLACE. VHP INFUSING AT GOAL RATE OF 40 MLS/ HOUR WITH 30 ML WATER FLUSH Q4H. RESIDUAL OF ZERO THIS AM. BEDOLLA DRAINING YELLOW COLORED URINE. PALLOR NOTED. ABRASION NOTED TO MID UPPER CHEST. SCATTERED BRUISES NOTED. LEVOPHED INFUSING AT 8 MCG/ MINUTE, PROPOFOL AT 50 MCG/ KG/ MINUTE, VASOPRESSIN AT 0.04 UNITS/ MINUTE, NS TKO. PATIENT RECEIVING REPLACEMENT FOR PHOS OF 0.5 THIS AM. BED LOW, CALL LIGHT IN REACH. WILL CONTINUE TO MONITOR PATIENT FREQUENTLY THROUGHOUT SHIFT.
--- NOTE | 2021-03-31 10:49 | NUR ---
Brief supportive visit this AM. Spoke with Pt's Primary RN Stephanie and discussed case. Pt resting in bed and is intubated. No S/S of distress at this time. Pt's brother Joe at bedside. Offered therapeutic listening and answered questions. Joe expresses appreciation of visit. Palliative Care will remain available.
--- NOTE | 2021-03-31 12:00 | NUR ---
PATIENT AFEBRILE. HR 60S TO 70S. SBP LOW 100S TO 120S. LEVOPHED AT 8 MCG/ MINUTE. FIO2 30%. NO OTHER ACUTE CHANGES TO NOTE ON AT THIS TIME. WILL CONTINUE TO MONITOR.
--- NOTE | 2021-03-31 15:00 | NUR ---
DR. PATTON INFORMED THAT PATIENT HAD NIGHT TMAX OF 100.7 DEGREES FAHRENHEIT. INFORMED THAT PATIENT'S WBCS INCREASING. INFORMED THAT PHOSPHOROUS 0.5 THIS AM BUT THAT REPLACEMENT ORDERED THIS AM. NO ORDERS OBTAINED AT THIS TIME.
--- NOTE | 2021-03-31 16:00 | NUR ---
PATIENT AFEBRILE. PATIENT REMAINS SATTING WELL ON SAME VENT SETTINGS LAST ASSESSMENT. HR IN THE 70S. SBP IN THE LOW 100S. LEVOPHED AT 5 MCG/ MINUTE. DR. PATTON STATED NO NEED FOR SEDATION VACATION THIS SHIFT. WILL CONTINUE TO MONITOR.
--- NOTE | 2021-03-31 19:13 | NUR ---
SHIFT SUMMARY PATIENT REMAINED INTUBATED AND SEDATED. PATIENT REMAINED RESPONDING TO NOXIOUS STIMULI. PATIENT HAD NO SIGNS OF PAIN THIS SHIFT. PATIENT HAD TMAX OF 100.2 DEGREES FAHRENHEIT. FIO2 ABLE TO BE DECREASED TO 30% BY END OF SHIFT. PATIENT REMAINED ON PC 20, PEEP 10. PATIENT REMAINED IN SR, HR 60S TO 80S. LEVOPHED ABLE TO BE DECREASED FROM 14 MCG/ MINUTE TO 3 MCG/ MINUTE. PATIENT HAD ONE LOOSE, YELLOW/ BROWN STOOL THIS SHIFT. TF INCREASED TO GOAL RATE OF 30 MLS/ HOUR. BEDOLLA DRAINED 850 MLS OF YELLOW COLORED URINE. NO CHANGE TO SKIN NOTED. PATIENT RECEIVING SECOND DOSE OF 30 MM OF KPHOS. PATIENT RECEIVED ALBUMIN X 3 TODAY. CAREGIVER/ FAMILY HERE ALL DAY WITH PATIENT. PATIENT APPEARS COMFORTABLE AT THIS TIME. BED LOW, CALL LIGHT IN REACH. REPORT WILL BE GIVEN TO ONCOMING KILN FURNITURE SAW TENDER NURSE SHORTLY.
--- NOTE | 2021-03-31 19:34 | NUR ---
CARE ASSUMED PT ON VENT, SEDATED ON PROPOFOL @ 50 MCK/KG/MIN. ALBUMIN INFUSING 2 OF 3 BOTTLES ORDERED. LAST BAG OF K-PHOS INFUSING. LEVO @ 3 MCG/MIN, VASO @ 0.04. CONTINUE ASSESSMENT AND CARE.
--- NOTE | 2021-04-01 01:38 | NUR ---
ASSESS BATH DAONE-PT DID NOT TOLERATE WELL, DECREASED SATS INTO 70'S, INCREASED RR 40-50. PLACED ON 100% FOR SHORT PERIOD OF TIME-THEN 40%. RT AWARE. BS: COURSE BILAT. ET-TUBE REMAINS 23 AT [facility]. CONTINUE ASSESSMENT AND CARE. .
--- NOTE | 2021-04-01 02:43 | NUR ---
ASSESS-PT RR 28, HR 113, ? PT IN PAIN, ? ANXIOUS. 0.5 MG ATIVAN GIVEN-WILL CONTINUE TO ASSESS.
[2021-04-01 03:33] LABS: BASOPHILS ABSOLUTE AUTO 0.01 K/mm3 (0.00-0.23); BASOPHILS PERCENT AUTO 0 % (0-2); Hematocrit 22.6 % (33.0-51.0); Hemoglobin 7.8 g/dL (11.5-16.0); LYMPHOCYTES ABSOLUTE AUTO 0.56 K/mm3 (0.84-5.20); LYMPHOCYTES PERCENT AUTO 6 % (21-46); MONOCYTES PERCENT AUTO 3 % (4-13); Mean Corpuscular HGB 31.1 pg (26.0-34.0); Mean Corpuscular HGB Conc 34.5 g/dL (31.5-36.5); Mean Platelet Volume 11.5 fL (9.1-12.4); Platelet Count 102 K/mm3 (150-400); RDW Coefficient Variation 13.8 % (11.7-14.2); RDW Standard Deviation 45.4 fL (35.1-46.3); Red Blood Cell Count 2.51 M/mm3 (3.80-5.20); White Blood Cell Count 9.35 K/mm3 (4.00-11.30)
[2021-04-01 03:35] LABS: EOSINOPHILS ABSOLUTE AUTO 0.12 K/mm3 (0.00-0.68); EOSINOPHILS PERCENT AUTO 1 % (0-6); IMMATURE GRAN ABSOLUTE AUTO 0.09 K/mm3 (0.00-0.10); IMMATURE GRAN PERCENT AUTO 1 % (0-1); Mean Corpuscular Volume 90 fL (80-100); NEUTROPHILS ABSOLUTE AUTO 8.27 K/mm3 (1.96-9.15); NEUTROPHILS PERCENT AUTO 88 % (41-73)
[2021-04-01 03:50] LABS: Albumin, Blood 3.2 g/dL (3.4-5.0); Anion Gap 10 mmol/L (6-16); Blood Urea Nitrogen 17 mg/dL (8-24); Bun/Creatinine Ratio 41.3 (12.0-20.0); CO2, Blood 25 mmol/L (21-32); Calcium, Blood 7.3 mg/dL (8.5-10.1); Chloride, Blood 95 mmol/L (98-108); Creatinine, Blood 0.41 mg/dL (0.40-1.00); Glomerular Filtration Rate >60 (60-); Glucose, Blood 105 mg/dL (70-99); Magnesium, Blood 1.4 mg/dL (1.6-2.4); Phosphorus, Blood 1.6 mg/dL (2.5-4.9); Potassium, Blood 2.7 mmol/L (3.5-5.5); Sodium, Blood 130 mmol/L (136-145)
--- NOTE | 2021-04-01 04:59 | NUR ---
REASSESS 0320- IMPROVED SATS/RR/HR. SEE VITALS FLOWSHEET. CONTINUE ASSESSMENTS AND CARE.
--- NOTE | 2021-04-01 06:32 | NUR ---
END OF SHIFT CAREGIVER REMAINS AT BEDSIDE. PT ON VENT-AC/PC RATE 20, PEEP 10, 40%. BS: COURSE BIALT/EVEN AIRATION. SXN: NO SECREATIONS OVERNIGHT, ONLY ORAL SECREATIONS NOTED. 1 LARGE BROWN LIQUID BM. BEDOLLA DRAINING, BEDBATH DONE. TUBE FEED INFUSING @ 30ML/HR = GOAL RATE-TUBING & BAG CHANGED. MD NOTIFIED OF K, MAG, PHOS, LACTIC ACID, & TRENDING DOWN H&H. NEW ORDERS PLACED-CONTINUE ASSESSMENTS AND CARE TILL REPORT OFF TO DAYSHIFT RN.
--- NOTE | 2021-04-01 08:05 | NUR ---
INITIAL ASSESSMENT PATIENT INTUBATED AND SEDATED. PATIENT RESPONDS TO NOXIOUS STIMULI. PATIENT DEAF AND MUTE AT BASELINE. PATIENT CAN AMBULATE WITH ASSISTANCE AND MOVE ALL EXTREMITIES AT BASELINE. FAMILY REPORTS ONLY GROSS MOVEMENT TO L ARM AT BASELINE. L HAND CONTRACTED. NO SIGNS OF PAIN NOTED THIS AM. PATIENT HAS TEMP OF 99.3 DEGREES FAHRENHEIT. PATIENT SATTING 90% AND GREATER ON PC 20, PEEP 10 AND 35% FIO2. LUNGS CLEAR T/O. SCANT AMOUNT OF THICK, PALE YELLOW SPUTUM SUCTIONED FROM ETT. PATIENT IN SR, HR 80S TO 90S. SBP LOW 100S. VASOPRESSIN ON SB AND LEVOPHED AT 2 MCG/ MINUTE. VHP TF INFUSING AT GOAL RATE OF 30 MLS/ HOUR INTO PEG TUBE. NIGHT RN REPORTED PATIENT HAD LOOSE STOOL. BEDOLLA DRAINING YELLOW COLORED URINE. SKIN PALE. SCATTERED BRUISES NOTED. PROPOFOL AT 50 MCG/ KG/ MINUTE, NS TKO. PATIENT RECEIVING KPHOS AND MAG REPLACEMENTS THIS AM FOR POTASSIUM OF 2.7, PHOS OF 1.6, AND MAG OF 1.4. BED LOW, CALL LIGHT IN REACH. FAMILY AT BEDSIDE. WILL CONTINUE TO MONITOR PATIENT FREQUENTLY THROUGHOUT SHIFT.
--- NOTE | 2021-04-01 09:00 | NUR ---
DR. PATTON UPDATED ON PATIENT. INFORMED OF HEMOGLOBIN 7.8, SODIUM 130, POTASSIUM OF 2.7, LACTIC AT 2.4, PHOS AT 1.6, MAG AT 1.4. INFORMED THAT PATIENT RECEIVING REPLACEMENTS FOR POTASSIUM, PHOS AND MAG THIS AM. NO ORDERS RECEIVED AT THIS TIME.
--- NOTE | 2021-04-01 12:00 | NUR ---
PATIENT AFEBRILE. HR 70S TO 80S. SBP LOW 100S TO 120S. LEVOPHED AT 4 MCG/ MINUTE. VASOPRESSIN ON SB. HEEL PROTECTORS PLACED BILAT HEELS REDDENED. NO OTHER ACUTE CHANGES TO NOTE ON AT THIS TIME. WILL CONTINUE TO MONITOR.
--- NOTE | 2021-04-01 15:17 | NUR ---
DR. PATTON INFORMED OF SPUTUM CULTURE RESULTS.
--- NOTE | 2021-04-01 15:18 | NUR ---
ASKED DR. PATTON IF HE WOULD LIKE REPEAT LABS OF POTASSIUM, PHOS AND MAG. STATED HE WOULD ORDER FOR MORNING.
--- NOTE | 2021-04-01 16:40 | NUR ---
PATIENT AFEBRILE. PATIENT REMAINS SATTING 90% AND GREATER ON SAME VENT SETTINGS. HR 70S TO 80S. SBP 90S TO LOW 100S. LEVOPHED AT 4 MCG/ MINUTE, VASOPRESSIN ON SB. PROPOFOL PLACED ON SB FOR SEDATION VACATION. PEG TUBE DRESSING CHANGED. KPHOS AND ALBUMIN STARTED. PATIENT HAD SMALL SMEAR OF STOOL. NO SIGNS OF PAIN NOTED. WILL CONTINUE TO MONITOR.
--- NOTE | 2021-04-01 18:16 | NUR ---
SHIFT SUMMARY PATIENT REMAINED INTUBATED AND SEDATED. PATIENT PLACED ON SEDATION VACATION AROUND 1640. PATIENT DID OPEN EYES. PATIENT DID NOT TRACK NURSE OR FOLLOW ANY COMMANDS. NURSE TRIED TO COMMUNICATE WITH PIECE OF PAPER AND PEN BUT PATIENT DID NOT LOOK AT PATIENT AND HAD UPWARD GAZE. PATIENT BACK ON PROPOFOL AT 20 MCG/ KG/ MINUTE. PATIENT WAS ON 50 MCG/ KG/ MINUTE PROPOFOL REST OF DAY. PATIENT REMAINED RESPONDING TO PAINFUL STIMULI. PATIENT HAD NO SIGNS OF PAIN DURING SHIFT. PATIENT HAD TMAX OF 99.3 DEGREES FAHRENHEIT. LUNGS REMAINED CLEAR THROUGHOUT AFTER SUCTIONING. PATIENT REMAINED ON PC 20, PEEP 10 AND 35% FIO2. PATIENT REMAINED IN SR, HR 70S TO 90S. SBP 90S TO 120S. PATIENT REMAINED RECEIVING VHP TF AT GOAL RATE. PATIENT HAD A SMEAR OF STOOL THIS SHIFT. PATIENT HAD OUT 750 MLS OF YELLOW URINE OUTPUT THIS SHIFT. HEEL PROTECTORS PLACED TO REDDENED HEELS. GAUZE UNDER PEG TUBE CHANGED. PATIENT REPOSITIONED Q2H. LEVOPHED RANGED FROM 2 TO 4 MCG/ MINUTE THIS SHIFT; CURRENTLY AT 2 MCG/ MINUTE. VASOPRESSIN ON SB. NS TKO. PATIENT RECEIVED 2 G MAG FOR LEVEL OF 1.4 THIS AM. PATIENT RECEIVED 60 MM KPHOS FOR POTASSIUM OF 2.7 AND PHOS OF 1.6. PATIENT RECEIVED 50 GM ALBUMIN THIS SHIFT. FAMILY HAS BEEN IN MOST OF THE DAY. PATIENT APPEARS COMFORTABLE AT THIS TIME. BED LOW, CALL LIGHT IN REACH. REPORT WILL BE GIVEN TO ASSUMING ABSTRACTOR NURSE SHORTLY.
--- NOTE | 2021-04-01 19:30 | NUR ---
CARE ASSUMED PT SEDATED ON VENT, BEDOLLA DRAINING, TF INFUSING @ 30ML/HR-GOAL. PROPOFOL @ 20 MCK/KG/MIN, LEVO @ 2 MICG/MIN, VASO ON SB. CONTINUE ASSESSMENT AND CARE.
--- NOTE | 2021-04-01 21:05 | NUR ---
ASSESS DESAT TO 80%, INCREASED RR 30'S, PT EYES OPEN, DOES NOT TRACK, DOES NOT FOLLOW. PT MOVING HEAD BACK AND FORTH, AND LEGS. INCREASED PROPOFOL FOR PT COMFORT, AND IMPROVE VITALS.
--- NOTE | 2021-04-01 23:17 | NUR ---
ASSESS- PT SATS DECREAED-82%. COURSE EQUAL BS BILAT, SXN: NO SECREATIONS. ORAL CARE-MOD AMTS CLEAR SECREATIONS, SATS REMAIN IN 80'S. PT MOVING HEAD AND LEGS. DOES NOT APEAR COMFORTABLE. INCREASED PROPOFOL SEE FLOWSHEET. REPOSITION PT.INCREASED FI02 TO 40%. SATS NOW 94%. WILL NOTOFY rt.
[2021-04-02 03:34] LABS: BASOPHILS ABSOLUTE AUTO 0.02 K/mm3 (0.00-0.23); BASOPHILS PERCENT AUTO 0 % (0-2); Hematocrit 23.6 % (33.0-51.0); LYMPHOCYTES PERCENT AUTO 7 % (21-46); MONOCYTES ABSOLUTE AUTO 0.41 K/mm3 (0.16-1.47); MONOCYTES PERCENT AUTO 7 % (4-13); Mean Corpuscular HGB 30.1 pg (26.0-34.0); Mean Corpuscular HGB Conc 33.9 g/dL (31.5-36.5); Mean Corpuscular Volume 89 fL (80-100); Mean Platelet Volume 11.4 fL (9.1-12.4); NRBC ABSOLUTE 0.02 K/mm3 (0.00-0.02); NRBC Auto 0.3 /100 WBC (0.0-0.2); Platelet Count 105 K/mm3 (150-400); RDW Coefficient Variation 13.4 % (11.7-14.2); RDW Standard Deviation 43.9 fL (35.1-46.3); Red Blood Cell Count 2.66 M/mm3 (3.80-5.20); White Blood Cell Count 6.17 K/mm3 (4.00-11.30)
--- NOTE | 2021-04-02 03:35 | NUR ---
ASSESS PT DOES NOT TOLLERATE TURNS AND REPOSITIONS. PT DECREASES SATS INTO 80'S AND INCREASES HR >100. INCREASED PROPOFOL TO 50 MCK/KG/MIN, INCREASED LEVO TO 4 FOR DECREASED BP'S. CONTINUE ASSESSMENTS AND CARE.
[2021-04-02 03:36] LABS: EOSINOPHILS ABSOLUTE AUTO 0.12 K/mm3 (0.00-0.68); EOSINOPHILS PERCENT AUTO 2 % (0-6); IMMATURE GRAN ABSOLUTE AUTO 0.04 K/mm3 (0.00-0.10); IMMATURE GRAN PERCENT AUTO 1 % (0-1); NEUTROPHILS ABSOLUTE AUTO 5.18 K/mm3 (1.96-9.15); NEUTROPHILS PERCENT AUTO 84 % (41-73)
[2021-04-02 03:54] LABS: Albumin, Blood 3.5 g/dL (3.4-5.0); Anion Gap 9 mmol/L (6-16); Blood Urea Nitrogen 14 mg/dL (8-24); Bun/Creatinine Ratio 25.5 (12.0-20.0); CO2, Blood 26 mmol/L (21-32); Calcium, Blood 7.3 mg/dL (8.5-10.1); Chloride, Blood 96 mmol/L (98-108); Creatinine, Blood 0.55 mg/dL (0.40-1.00); Glomerular Filtration Rate >60 (60-); Glucose, Blood 97 mg/dL (70-99); Magnesium, Blood 2.1 mg/dL (1.6-2.4); Phosphorus, Blood 2.2 mg/dL (2.5-4.9); Potassium, Blood 3.1 mmol/L (3.5-5.5); Sodium, Blood 131 mmol/L (136-145)
--- NOTE | 2021-04-02 09:05 | NUR ---
INITIAL ASSESSMENT PATIENT INTUBATED AND SEDATED. PATIENT ON PROPOFOL AT 50 MCG/ KG/ MINUTE. PATIENT RESPONDS TO NOXIOUS STIMULI. NO SIGNS OF PAIN NOTED. PATIENT HAS TEMP OF 99.8 DEGREES FAHRENHEIT. PATIENT ON PC 20, PEEP 10 AND 40% FIO2. NO SPUTUM NOTED WITH SUCTIONING. UPPER LUNG LOBES COARSE, WITH RHONCHI. RHONCHI NOTED IN LOWER LOBES. PATIENT IN SR, HR 80S TO 90S. SBP LOW 100S TO 120S. LEVOPHED AT 4 MCG/ MINUTE, VASOPRESSIN ON SB. ABDOMEN MILDLY DISTENDED, NORMOACTIVE BS NOTED. PEG TUBE IN PLACE. TF RESIDUAL OF 370 MLS THIS AM. 250 MLS REINSTILLED. TF PLACED ON HOLD. PATIENT HAVING LOOSE, YELLOW/ BROWN STOOLS. BEDOLLA DRAINING YELLOW COLORED URINE. SKIN PALE AND FRAGILE. SCATTERED BRUISES NOTED. HEEL PROTECTORS IN PLACE. NS TKO. PATIENT RECEIVING 30 MM KPHOS THIS AM FOR POTASSIUM OF 3.1 AND PHOS OF 2.2 THIS AM. BED LOW, CALL LIGHT IN REACH. CHEMICAL DEPENDENCY COUNSELOR AT SIDE. WILL CONTINUE TO MONITOR PATIENT FREQUENTLY THROUGHOUT SHIFT.
--- NOTE | 2021-04-02 11:34 | NUR ---
DR. PATTON UPDATED ON PATIENT. INFORMED THAT FAMILY REPORTS PATIENT DOES NOT WEAR LIDOCAINE PATCHES AT HOME. MED DC'D FROM [facility] AND TAKEN OFF OF MED REC. INFORMED THAT POTASSIUM 3.1 AND PHOS 2.2 THIS AM AND THAT PATIENT RECEIVING 30 MM KPHOS AT THIS TIME. ASKED IF WOULD LIKE POT AND PHOS LAB HOUR AFTER COMPLETE. STATED WILL GET AGAIN IN AM. INFORMED THAT TF RESIDUAL 370 MLS THIS AM AND THAT 250 MLS REINSTILLED AND TF PLACED ON HOLD. NO ORDERS RECEIVED AT THIS TIME.
--- NOTE | 2021-04-02 12:10 | NUR ---
PATIENT HAS TEMP OF 99.3 DEGREES FAHRENHEIT. PATIENT REMAINS ON SAME VENT SETTINGS. LUNGS COARSE IN UPPER LOBES AND DIMINISHED IN LOWER LOBES. HR 70S TO 80S. SBP 90S TO 1-TEENS. LEVOPHED AT 3 MCG/ MINUTE AND VASOPRESSIN INFUSING AT 0.04 UNITS/ MINUTE. TF HAS REMAINED OFF SINCE AM. RESIDUAL OF 320 MLS OBTAINED; [address] PATTON STATED TO PLACE ON HOLD UNTIL UNIT TENDER AND THEY CAN RESTART TRICKLE FEEDS AT 10 MLS/ HOUR. PATIENT HAVING MEDIUM TO LARGE, BROWN/ YELLOW, LOOSE STOOLS. ATTENDS PLACED. PATIENT WITHOUT DISTRESS OR SIGNS OF PAIN AT THIS TIME. NO OTHER ACUTE CHANGES TO NOTE ON AT THIS TIME. WILL CONTINUE TO MONITOR.
--- NOTE | 2021-04-02 16:00 | NUR ---
PATIENT AFEBRILE. PATIENT REMAINS ON SAME VENT SETTINGS. HR 60S TO 70S. SBP 90S TO 120S. LEVOPHED AT 2 MCG/ MINUTE, VASOPRESSIN ON SB. PATIENT CONTINUES TO HAVE LOOSE/ LIQUID, BROWN/ LIQUID STOOLS. RECTAL TUBE PLACED. NO OTHER ACUTE CHANGES TO NOTE ON AT THIS TIME. WILL CONTINUE TO MONITOR.
--- NOTE | 2021-04-02 18:36 | NUR ---
SHIFT SUMMARY PATIENT REMAINED INTUBATED AND SEDATED. PATIENT REMAINED RESPONDING TO NOXIOUS STIMULI. PATIENT HAD TMAX OF 99.8 DEGREES FAHRENHEIT. NO SIGNS OF PAIN NOTED DURING SHIFT. PATIENT REMAINED ON PC 20, PEEP 10 AND 40% FIO2. LUNGS REMAINED COARSE/ DIM. NO SPUTUM SUCTIONED FROM ETT DURING SHIFT FROM RN. PATIENT REMAINED IN SR, HR 60S TO 90S. SBP 70S TO 130S. LEVOPHED RANGED FROM 2 TO 4 MCG/ MINUTE. VASOPRESSIN ON AND OFF DURING SHIFT. TF PLACED ON HOLD IN AM. TF RESIDUALS HIGH AT 370 AND 320; EACH TIME ONLY [address] PATTON STATED TO KEEP OFF UNTIL CONTRACT ENGINEER ON AND THEN THEY CAN START TRICKLE FEEDS AT 10 MLS/ HOUR. PATIENT CONTINUED TO HAVE LOOSE/ LIQUID STOOLS. RECTAL TUBE INSERTED IN LATE AFTERNOON. BEDOLLA DRAINED 950 MLS OF YELLOW COLORED URINE. NO CHANGE TO SKIN. PATIENT REPOSITIONED Q2H DURING SHIFT. PROPOFOL AT 50 MCG/ KG/ MINUTE. PATIENT DID HAVE SEDATION VACATION TOWARD END OF SHIFT AND WAS PLACED BACK ON PROPOFOL AT 20 MCG/ KG/ MINUTE FOR SIGNS OF AGITATION. PATIENT APPEARS WITHOUT DISTRESS OR PAIN AT THIS TIME. PATIENT RECEIVED 30 MM KPHOS FOR POTASSIUM OF 3.1 AND PHOS OF 2.2 THIS AM. PATIENT RECEIVED ALBUMIN THIS SHIFT. CAREGIVER/ FAMILY IN ROOM MOST OF SHIFT. BED LOW, CALL LIGHT IN REACH. REPORT WILL BE GIVEN TO ASSUMING CONTRACT ENGINEER NURSE SHORTLY.
--- NOTE | 2021-04-02 19:15 | NUR ---
REPORT RECIEVED-CARE ASSUMED. PT ON VENT, RESTING, PROPOFOL INFUSING @ 20MCK/KG/MIN, LEVO @ 3 MCK/MIN, VASO ON STANDBY. BEDOLLA DRAINING CLEAR PALE YELLOW. BS: COURSE-NO SECREATIONS WHEN SXN-POSITIVE COUGH. CONTINUE ASSESSMENT AND CARE.
--- NOTE | 2021-04-02 20:16 | NUR ---
ASSESS PT RR 70-80, DECREASED SATS-EYES OPEN-APEARS TO BE LOOKING AROUND, BUT NOT FOLLOWING COMMANDS-ATTEMPTED TO WRITE ON PAPER TO HER. INCREASED PROPOFOL TO 25-NO AFFECT-30 SAME, THEN 35 FOR COMFORT. RR HAS IMPROVED TO 28. WILL CONTINUE TO ASSESS
--- NOTE | 2021-04-03 01:57 | NUR ---
ASSESS PT MOVING ARMS, HEAD AND LEGS, PROPOFOL IS @ 45. GIVING 0.5 ATIVAN TO ASSIST IN PT COMFORT. WILL CONTINUE TO ASSESS.
[2021-04-03 03:34] LABS: BASOPHILS ABSOLUTE AUTO 0.03 K/mm3 (0.00-0.23); BASOPHILS PERCENT AUTO 0 % (0-2); EOSINOPHILS ABSOLUTE AUTO 0.15 K/mm3 (0.00-0.68); EOSINOPHILS PERCENT AUTO 2 % (0-6); Hematocrit 23.9 % (33.0-51.0); Hemoglobin 8.4 g/dL (11.5-16.0); IMMATURE GRAN ABSOLUTE AUTO 0.08 K/mm3 (0.00-0.10); IMMATURE GRAN PERCENT AUTO 1 % (0-1); LYMPHOCYTES ABSOLUTE AUTO 0.57 K/mm3 (0.84-5.20); LYMPHOCYTES PERCENT AUTO 7 % (21-46); MONOCYTES ABSOLUTE AUTO 0.64 K/mm3 (0.16-1.47); MONOCYTES PERCENT AUTO 8 % (4-13); Mean Corpuscular HGB 30.9 pg (26.0-34.0); Mean Corpuscular HGB Conc 35.1 g/dL (31.5-36.5); Mean Corpuscular Volume 88 fL (80-100); Mean Platelet Volume 11.8 fL (9.1-12.4); NEUTROPHILS ABSOLUTE AUTO 6.72 K/mm3 (1.96-9.15); NEUTROPHILS PERCENT AUTO 82 % (41-73); NRBC ABSOLUTE 0.02 K/mm3 (0.00-0.02); NRBC Auto 0.2 /100 WBC (0.0-0.2); Platelet Count 129 K/mm3 (150-400); RDW Coefficient Variation 13.6 % (11.7-14.2); RDW Standard Deviation 43.6 fL (35.1-46.3); Red Blood Cell Count 2.72 M/mm3 (3.80-5.20); White Blood Cell Count 8.19 K/mm3 (4.00-11.30)
[2021-04-03 03:54] LABS: Albumin, Blood 3.1 g/dL (3.4-5.0); Anion Gap 9 mmol/L (6-16); Blood Urea Nitrogen 13 mg/dL (8-24); Bun/Creatinine Ratio 22.9 (12.0-20.0); CO2, Blood 25 mmol/L (21-32); Calcium, Blood 7.4 mg/dL (8.5-10.1); Chloride, Blood 99 mmol/L (98-108); Creatinine, Blood 0.57 mg/dL (0.40-1.00); Glomerular Filtration Rate >60 (60-); Glucose, Blood 101 mg/dL (70-99); Magnesium, Blood 2.1 mg/dL (1.6-2.4); Phosphorus, Blood 1.8 mg/dL (2.5-4.9); Potassium, Blood 2.9 mmol/L (3.5-5.5); Sodium, Blood 133 mmol/L (136-145)
--- NOTE | 2021-04-03 06:24 | NUR ---
END OF SHIFT 1 L NS BOLUS IS DONE, PT ON 6 LEVO, 45 PROPOFOL, TKO NS & STARTED ON 20 K/PHOS. TUBE FEEDS REMAIN ON HOLD PER MD DUE TO HIGH REDIDUALS. MD ORDER FOR RESTART THIS AM BY DAYSHFT RN AT A RATE OF 10ML/HR WITH FOLLOW UP RESIDUAL CHECKS. BEDOLLA DRAINING CLEAR YELLOW OUTPUT WITH 1200ML OUT OVER NIGHT. RECTAL TUBE IN PLACE-10ML LIQUID OUT OVERNIGHT. CONTINUE CARE TILL REPORT OFF TO DAYSIDFT CAREGIVER REMAINS IN ROOM WITH PT AT BEDSIDE.
--- NOTE | 2021-04-03 10:54 | NUR ---
AM NOTE... ASSUMED CARE OF PT AT 0700. PT IS INTUBATED AND SEDATED ON PROPOFOL RUNNING AT 45MCG AND LEVOPHED RUNNING AT 6MCG WITH MAPS >65. PT'S VENT SETTINGS ARE PC: 20 PEEP 10 AND 40% FIO2 WITH O2 SATS >90%. L/S COARSE W/RHONCI T/O AND DIM IN THE BASES. SCANT AMOUNT OF ET SECRETIONS DURING SUCTIONING. MODERATE AMOUNT OF THICK CLEAR ORAL SECRETIONS SUCTIONED. BT PRESENT AND HYPOACTIVE, PT HAS MILD DISTENTION. FOELY IS PATENT AND DRAINING TO GRAVITY. J TUBE IS PATENT, 250MLS RESIDUAL NOTED AND REINSTILLED. TUBE FEEDS ON HOLD PER DR. PATTON, WILL SPEAK WITH DR. BOTELLO UPON HIS ARRIVAL TO THE UNIT ABOUT RESTARTING THE TUBE FEEDS. PT HAS TRACE EDEMA NOTED TO HER HANDS. PT'S LATRICE VILLAFUERTE AT THE BEDSIDE, SPOKE TO THIS RN ABOUT HIS CONCERNS OVER THE PT'S CONDITION AND QUALITY OF LIFE IF A TRACH IS NEEDED. 1000: DR. BOTELLO AT THE BEDSIDE FOR ASSESSMENT. THE PEEP ON THE VENT WAS CHANGED FROM 10 TO 5, PT MAINTAINED HER O2 SATS >90 FOR APROX 45 MINS, THEN HER O2 SATS STARTED TO DROP DOWN TO 84-85%, THE PT WAS GIVEN 100% FIO2 FOR 2 MINS, THIS BROUGHT UP HER O2 SATS TO >95% BUT AFTER APROX 5 MINS THEY DROPPED BACK DOWN TO 84-85%. DR. BOTELLO NOTIFIED AND THE PEEP WAS INCREASED BACK UP TO 8. RT WAS UNAVAILABLE DURING THIS TIME AND THIS RN TURNED THE PEEP UP WITH EXPRESS PERMISSION BY DR. BOTELLO. RT WAS NOTIFIED OF THIS CHANGE BY THIS RN THE CHANGE WAS BEING MADE. SINCE THE PT'S PEEP WAS INCREASED TO 8 PT'S O2 SATS HAVE BEEN 92%. WILL CONTINUE TO MONITOR.
--- NOTE | 2021-04-03 17:51 | NUR ---
SHIFT SUMMARY... NO ACUTE NEGATIVE CHANGES NOTED THIS SHIFT. PT'S VENT SETTINGS ARE PC: 20/8/45%. L/S CONTINUE TO BE COARSE WITH SCATTERED RHONCHI. PT CONTINUES TO HAVE SCANT TRACHIAL AND ORAL SECRETIONS. PT'S TUBE FEEDS WERE RESTARTED PER ORDERS AT 20MLS/HR AND 30MLS WATER FLUSHES Q4HR. PT'S TUBE FEED FORMULA WAS CHANGED TODAY WELL. PT HAS HAD A SMALL AMOUNT (20MLS) OF LIQUID BROWN STOOLS IN THE RECTAL TUBE. THE PT'S TORRI AREA IS RED AND IRRITATED, SKIN CARE WAS PROVIDED AND BARRIER CREAM APPLIED. PT'S CAREGIVER AT THE BEDSIDE MOST OF THIS SHIFT. PT HAS BEEN ON 6-8MCG OF LEVOPHED TO KEEP THE PT'S MAPS >65. DR. BOTELLO AT THE BEDSIDE AGAIN TO ASSESS THE PT, PER DR. BOTELLO HE WANTS TO START PRECEDEX WITH THE HOPES OF TITRATING THE PROPFOL OFF BY TOMORROW AM. WILL CONTINUE TO MONITOR UNTIL REPORT IS GIVEN TO THE ONCOMING RN.
--- NOTE | 2021-04-03 19:58 | NUR ---
ASSUMPTION OF CARE RECEIVED REPORT FROM GARRICK RN, ASSUMED CARE OF PATIENT. PATIENT INTUBATED WITH ETT 7.0 24 CM AT THE GUMS, VENT SETTINGS AC20/PEEP5/FIO2 45%, 02 SATS AT 95%. LEVOPHED AT 7MCG/MIN WITH MAP AT 68. SEDATED WITH PROPOFOL AT 25MCG/KG/MIN AND PRECEDEX OF 0.3MCG/KG/HR. TF AT GOAL OF 20ML/HR VIA PEG TUBE. BEDOLLA PATENT AND DRAINING CLEAR, YELLOW URINE. RECTAL TUBE WITH BROWN LIQUID OUTPUT. WILL REVIEW ORDERS AND TREAT PRESCRIBED.
[2021-04-03 21:13] LABS: Phosphorus, Blood 3.4 mg/dL (2.5-4.9); Potassium, Blood 3.1 mmol/L (3.5-5.5)
[2021-04-04 04:40] LABS: BASOPHILS ABSOLUTE AUTO 0.02 K/mm3 (0.00-0.23); BASOPHILS PERCENT AUTO 0 % (0-2); EOSINOPHILS ABSOLUTE AUTO 0.21 K/mm3 (0.00-0.68); EOSINOPHILS PERCENT AUTO 3 % (0-6); Hematocrit 24.7 % (33.0-51.0); Hemoglobin 8.4 g/dL (11.5-16.0); IMMATURE GRAN ABSOLUTE AUTO 0.12 K/mm3 (0.00-0.10); IMMATURE GRAN PERCENT AUTO 1 % (0-1); LYMPHOCYTES ABSOLUTE AUTO 0.41 K/mm3 (0.84-5.20); LYMPHOCYTES PERCENT AUTO 5 % (21-46); MONOCYTES ABSOLUTE AUTO 0.53 K/mm3 (0.16-1.47); MONOCYTES PERCENT AUTO 6 % (4-13); Mean Corpuscular HGB 30.9 pg (26.0-34.0); Mean Corpuscular Volume 91 fL (80-100); Mean Platelet Volume 11.9 fL (9.1-12.4); NEUTROPHILS ABSOLUTE AUTO 7.14 K/mm3 (1.96-9.15); NEUTROPHILS PERCENT AUTO 85 % (41-73); Platelet Count 142 K/mm3 (150-400); RDW Coefficient Variation 14.2 % (11.7-14.2); RDW Standard Deviation 47.1 fL (35.1-46.3); Red Blood Cell Count 2.72 M/mm3 (3.80-5.20); White Blood Cell Count 8.43 K/mm3 (4.00-11.30)
[2021-04-04 05:04] LABS: Anion Gap 7 mmol/L (6-16); Blood Urea Nitrogen 12 mg/dL (8-24); CO2, Blood 26 mmol/L (21-32); Calcium, Blood 7.3 mg/dL (8.5-10.1); Chloride, Blood 109 mmol/L (98-108); Glomerular Filtration Rate >60 (60-); Glucose, Blood 122 mg/dL (70-99); Potassium, Blood 3.9 mmol/L (3.5-5.5); Sodium, Blood 142 mmol/L (136-145)
--- NOTE | 2021-04-04 06:24 | NUR ---
SHIFT SUMMARY PATIENT INTUBATED AND SEDATED THROUGH SHIFT WITH NO CHANGES TO VENT SETTINGS. PATIENT RESPONDS TO PHYSICAL STIMULI. ATTEMPTED TO TITRATE PROPOFOL DOWN LOW 15MCG/KG, WITH PRECEDEX AT 0.5MCG/KG, PATIENT BEGAN OPENING EYES, GRIMACING, AND BREATHING 30-40'S. PROPOFOL INCREASED BACK TO 20MCG/KG, PATIENT COMFORTABLE AND TOLERATING VENT AT THESE SEDATION SETTINGS. LEVOPHED TITRATED FOR MAP OF 65, CURRENTLY AT 6MCG, WHEN ATTEMPTED TO GO LOWER PATIENT'S MAP DROPPED BELOW 60. TF INFUSING AT 20ML/HR WITH RESIDUALS OF 20ML AT 2000 AND 450ML AT 0000. BEDOLLA REMAINED PATENT WITH ADEQUATE URINE OUTPUT. RECTAL TUBE IN PLACE WITH SCANT BROWN, LIQUID OUTPUT. POTASSIUM AND PHOS WERE REPORTED TO DR. BOTELLO AFTER RESULTED AT BEGINNING OF SHIFT WITH POTASSIUM REPLACEMENT GIVEN VIA PEG TUBE. POTASSIUM WITHIN NORMAL LIMITS THIS AM. WILL CONTINUE TO MONITOR AND REPORT TO ONCOMING RN.
--- NOTE | 2021-04-04 12:51 | NUR ---
REASSESSMENT PT REMAINS INTUBATED AND SEDATED. WITH TURNING THIS MORNING PT'S RESPIRATORY RATE INCREASED TO 40 AND SHE WAS ONLY TAKING ABOUT 250ML WITH MOST BREATHS. SHE TOOK ABOUT [address] BOTELLO CAME BY AND GAVE INSTRUCTIONS TO KEEP HER INTUBATED AND GAVE THE OK TO INCREASE SEDATION. WITH FOLLOWING TURNS PT TOLERATED THEM MUCH BETTER WITH THE INCREASED SEDATION. LUNGS ARE COARSE. SR. BP STILL REQUIRING LEVOPHED, TITRATING ABLE. PT HAD RESIDUAL OF 480ML THIS MORNING. ALL REPLACED PER DR. BOTELLO'S INSTRUCTIONS. PT DOESN'T APPEAR TO SHOW ANY SIGNS OF ABDOMINAL DISCOMFORT. BOWEL TONES HYPOACTIVE. RECTAL TUBE WITH SCANT LIQUID OUTPUT. BEDOLLA DRAINING APPROPRIATELY. PT'S SON AT THE BEDSIDE. CONTINUE TO MONITOR.
--- NOTE | 2021-04-04 17:17 | NUR ---
SHIFT SUMMARY PT REMAINED INTUBATED AND SEDATED TODAY. HER LUNGS ARE STILL COARSE ALTHOUGH MINIMAL SECRETIONS BEING SUCTIONED OUT. SR. LEVOPHED TITRATED DOWN TO 3 MCG/MIN THROUGHOUT THE SHIFT. SHE CONTINUES TO HAVE HIGH RESIDUALS WITH OVER 500ML THIS EVENING, HALF OF IT DISCARDED. BOWEL TONES HYPOACTIVE. SCANT OUTPUT FROM RECTAL TUBE. PT'S SON HAS BEEN AT THE BEDSIDE THROUGHOUT THE SHIFT. ALL QUESTIONS HAVE BEEN ANSWERED. CONTINUING TO MONITOR.
--- NOTE | 2021-04-04 19:15 | NUR ---
ASSUMPTION OF CARE RECEIVED REPORT FROMIsak DAVEY RN, ASSUMED CARE OF PATIENT. INTUBATED WITH VENT SETTINGS AC 20/380/PEEP 8/FIO2 45% WITH 02 SATS OF 94%. PATIENT SEDATED ON PRECEDEX OF 0.5MCG/KG AND PROPOFOL OF 40MCG/KG, GRIMACES AND BECOMES TACHYPNEIC WHEN TURNED. TF INFUSING AT 20ML/HR VIA PEG TUBE IN ABD. BEDOLLA CATHETER WITH CLEAR, YELLOW URINE PATENT AND DRAINING. RECTAL TUBE IN PLACE WITH SCANT OUTPUT. EXTREMITIES ELEVATED ON PILLOWS. WILL REVIEW ORDERS AND TREAT PRESCRIBED.
--- NOTE | 2021-04-05 04:30 | NUR ---
RESPIRATORY CHANGES AT 0400 PATIENT TACHYPNEIC, RESP RATES 40-50, GRIMACING, MOANING, COUGHING UP THICK, WHITE SECRETIONS. SUCTIONED, REPOSITIONED FOR COMFORT AND INCREASED SEDATION TO PRECEDEX OF 0.7MCG/KG AND PROPOFOL TO 50MCG/KG. PATIENT DESAT TO 87%, FIO2 AT 50%. AT 0430, PATIENT NOW SATS OF 91%, RESPIRATIONS DECREASING TO 30'S, NO LONGER GRIMACING OR MOANING. FAMILY MEMBER TO BEDSIDE, WILL MONITOR.
[2021-04-05 04:32] LABS: BASOPHILS ABSOLUTE AUTO 0.02 K/mm3 (0.00-0.23); BASOPHILS PERCENT AUTO 0 % (0-2); EOSINOPHILS ABSOLUTE AUTO 0.38 K/mm3 (0.00-0.68); EOSINOPHILS PERCENT AUTO 4 % (0-6); Hemoglobin 8.4 g/dL (11.5-16.0); IMMATURE GRAN PERCENT AUTO 1 % (0-1); LYMPHOCYTES PERCENT AUTO 11 % (21-46); MONOCYTES ABSOLUTE AUTO 0.45 K/mm3 (0.16-1.47); MONOCYTES PERCENT AUTO 4 % (4-13); Mean Corpuscular HGB 30.4 pg (26.0-34.0); Mean Corpuscular HGB Conc 33.6 g/dL (31.5-36.5); Mean Corpuscular Volume 91 fL (80-100); Mean Platelet Volume 11.2 fL (9.1-12.4); NEUTROPHILS ABSOLUTE AUTO 8.29 K/mm3 (1.96-9.15); NEUTROPHILS PERCENT AUTO 80 % (41-73); Platelet Count 163 K/mm3 (150-400); RDW Coefficient Variation 14.5 % (11.7-14.2); RDW Standard Deviation 47.8 fL (35.1-46.3); Red Blood Cell Count 2.76 M/mm3 (3.80-5.20); White Blood Cell Count 10.34 K/mm3 (4.00-11.30)
[2021-04-05 04:57] LABS: Anion Gap 10 mmol/L (6-16); Blood Urea Nitrogen 21 mg/dL (8-24); Bun/Creatinine Ratio 34.9 (12.0-20.0); CO2, Blood 23 mmol/L (21-32); Calcium, Blood 7.3 mg/dL (8.5-10.1); Chloride, Blood 109 mmol/L (98-108); Glomerular Filtration Rate >60 (60-); Glucose, Blood 98 mg/dL (70-99); Potassium, Blood 3.2 mmol/L (3.5-5.5); Sodium, Blood 142 mmol/L (136-145)
--- NOTE | 2021-04-05 06:14 | NUR ---
SHIFT SUMMARY PATIENT INTUBATED AND SEDATED. FIO2 50% WITH SATS ABOVE 90%. SEDATION AT PRECEDEX OF 0.7MCG/KG, PROPOFOL AT 50MCG/KG. PATIENT COMFORTABLE AT THIS TIME. TF AT GOAL OF 20ML/HR WITH HIGH RESIDUALS. RESIDUALS INCREASING WITH EACH CHECK. RECTAL TUBE REMAINS IN PLACE WITH NO OUTPUT AT THIS TIME, BEDOLLA PATENT AND DRAINING. FAMILY TO BEDSIDE. NO ACUTE CHANGES THROUGH SHIFT. WILL MONITOR AND REPORT TO ONCOMING RN.
--- NOTE | 2021-04-05 07:24 | NUR ---
ASSUMED CARE: PT RESTING QUIETLY IN BED, INTUBATED, SEDATED. AC 20/PC 30/35/8. PROPOFOL AT 45MCG AT THIS TIME. PRECEDEX AT 0.7MCG. TF RUNNING. RECTAL TUBE AND BEDOLLA IN PLACE. PT'S NEPHEW IS AT BEDSIDE. NO ACUTE NEEDS AT THIS TIME.
--- NOTE | 2021-04-05 09:03 | NUR ---
PT'S O2 SATURATIONS KEPT DROPPING INTO THE 70S. MINIMAL CLEAR THIN SECRETIONS. DR MATIAS WAS AT BEDSIDE AND MADE HER AWARE THAT FIO2 HAD BEEN INCREASED TO 65%. INSTRUCTED FOR CXR. XRAY COMPLETED. PT BECAME AGITATED WITH INCREASED RESPIRATIONS AND MOVING OF HEAD AROUND WITH MOVEMENT AND ORAL CARE
--- NOTE | 2021-04-05 12:19 | NUR ---
DR BOTELLO CAME TO EVALUATE PT AND CHANGED VENT SETTINGS TO AC 20/450/5/80%. DR INSTRUCTED THIS RN TO GIVE A 50MCG DOSE OF FENTANYL AND TO GIVE A DOSE OF LASIX. DOSE OF ATIVAN ADMINISTERED RECENTLY WELL. RT AT BEDSIDE ADMINISTERING BREATHING TX. ALSO DID BEDSIDE ULTRASOUND WITH NO UNUSUAL FINDINGS NOTED.
--- NOTE | 2021-04-05 13:00 | NUR ---
PT CONTINUED TO STACK AGAINST THE VENT WITH HIGH CIRCUIT PRESSURE. DISCUSSED WITH DR GILBERT WHO CHANGED SETTINGS TO AC 16/PC 30/80/5. PRECEDEX INCREASED PER DR MARINELLI. ALSO INSTRUCTED FOR 2 DUONEBS BACK TO BACK AND PT'S HR BECAME ELEVATED INTO 130S WITH THIS. DR HERNANDEZ
--- NOTE | 2021-04-05 18:45 | NUR ---
SHIFT SUMMARY: PT INTUBATED WITH SETTINGS AC 16/PC 30/70/5. PROPOFOL AT 60MCG/KG AND PRECEDEX AT 1.4 MCG. PT NOW APPEARS COMFORTABLE AND NOT FIGHTING VENT. DR GILBERT INSTRUCTED TO KEEP PT HEAVILY SEDATED AT THIS TIME. DIURESING WELL FROM BEDOLLA BUT MINIMAL OUTPUT FROM RECTAL TUBE. FAMILY HAS BEEN AT BEDSIDE MAJORITY OF SHIFT TODAY. NO FURTHER NEEDS AT THIS TIME.
--- NOTE | 2021-04-05 21:28 | NUR ---
SHIFT ASSESSMENT ASSUMED CARE OF PT @ 1900. REPORT FROM RIGOBERTO HODGSON. PT INTUBATED AND SEDATED. VENT SETTINGS-AC:16/70%/ PEEP-5 c O2 SAT OF 90-92%. PROPOFOL@ 60MCG/KG/MIN, NOREPINEPHRINE @ 4MCG/MIN, PRECEDEX @ 1.4MCG/KG/HR. PT APPEARS PAINFUL, FIGHTING THE VENTILATOR, TACHYCARDIC. MEDICATED c PRN PAIN MEDS, SEEMED TO RESPOND WELL, O2 SATS NOW 97-98% AFTER MEDS. TF INFUSING, NO RESIDUALS. RECTAL TUBE IN PLACE WITH MINIMAL OUTPUT. BEDOLLA CATH PATENT, DRAINING YELLOW/GREEN URINE. NO FAMILY AT BEDSIDE AT THIS TIME. WILL CONTINUE TO MONITOR CLOSELY.
[2021-04-06 03:58] LABS: BASOPHILS ABSOLUTE AUTO 0.03 K/mm3 (0.00-0.23); BASOPHILS PERCENT AUTO 0 % (0-2); EOSINOPHILS ABSOLUTE AUTO 0.63 K/mm3 (0.00-0.68); EOSINOPHILS PERCENT AUTO 5 % (0-6); Hematocrit 25.3 % (33.0-51.0); Hemoglobin 8.7 g/dL (11.5-16.0); IMMATURE GRAN PERCENT AUTO 1 % (0-1); LYMPHOCYTES ABSOLUTE AUTO 0.76 K/mm3 (0.84-5.20); LYMPHOCYTES PERCENT AUTO 7 % (21-46); MONOCYTES ABSOLUTE AUTO 0.55 K/mm3 (0.16-1.47); MONOCYTES PERCENT AUTO 5 % (4-13); Mean Corpuscular HGB 31.4 pg (26.0-34.0); Mean Corpuscular HGB Conc 34.4 g/dL (31.5-36.5); Mean Corpuscular Volume 91 fL (80-100); Mean Platelet Volume 11.7 fL (9.1-12.4); NEUTROPHILS ABSOLUTE AUTO 9.59 K/mm3 (1.96-9.15); NEUTROPHILS PERCENT AUTO 82 % (41-73); Platelet Count 183 K/mm3 (150-400); RDW Coefficient Variation 14.6 % (11.7-14.2); RDW Standard Deviation 48.9 fL (35.1-46.3); Red Blood Cell Count 2.77 M/mm3 (3.80-5.20); White Blood Cell Count 11.66 K/mm3 (4.00-11.30)
[2021-04-06 04:13] LABS: Albumin, Blood 2.4 g/dL (3.4-5.0); Anion Gap 7 mmol/L (6-16); Blood Urea Nitrogen 19 mg/dL (8-24); Bun/Creatinine Ratio 32.7 (12.0-20.0); CO2, Blood 24 mmol/L (21-32); Calcium, Blood 7.2 mg/dL (8.5-10.1); Chloride, Blood 110 mmol/L (98-108); Creatinine, Blood 0.58 mg/dL (0.40-1.00); Glomerular Filtration Rate >60 (60-); Glucose, Blood 102 mg/dL (70-99); Magnesium, Blood 2.1 mg/dL (1.6-2.4); Phosphorus, Blood 1.8 mg/dL (2.5-4.9); Potassium, Blood 3.1 mmol/L (3.5-5.5); Sodium, Blood 141 mmol/L (136-145)
--- NOTE | 2021-04-06 05:34 | NUR ---
UPDATE PTS ET TUBE HAD A INTERMITTENT LEAK. ATTEMPTED TO ADD AIR, CONTINUED TO LEAK. RT ALSO IN ROOM, ADJUSTED PRESSURE MULTIPLE TIMES, WOULD EMPTY AFTER ABOUT [address] BUTTS NOTIFIED, DECISION TO SWAP ET TUBES MADE. DR BUTTS AND RT IN ROOM, 10GM ETOMIDATE GIVEN @ 0430, 7.5 ET-24 @ GUMS INSERTED @ 0435. VISUALIZATION OF TUBE PASSING CORDS, + ETCO2 COLOR CHANGE. STAT C-XRAY ORDERED, TUBE PLACEMENT CONFIRMED BY DR BUTTS. NO CHANGES IN VENT SETTINGS, O2 SATS >90%, LS EQUAL BILATERALLY. WILL CONTINUE TO MONITOR.
--- NOTE | 2021-04-06 06:30 | NUR ---
SHIFT SUMMARY NO SIGNIFICANT CHANGES SINCE LAST UPDATE. REMAINS INTUBATED AND SEDATED @ SAME SETTINGS. PROPOFOL, PRECEDEX, AND LEVOPHED CONTINUE c NO RATE CHANGES. TF REMAINS @ GOAL, NO RESIDUALS. MINIMAL OUTPUT FROM RECTAL TUBE. BEDOLLA CATH CONTINUES TO DRAIN WELL, GREENISH/ YELLOW URINE. PT GIVEN 150CC BOLUS POST ET TUBE EXCHANGE, VSS AT THIS TIME c LEVOPHED @ 4MCG/MIN. KPHOS CURRENTLY INFUSING. PTS CAREGIVE REMAINS AT BEDSIDE. WILL CONTINUE TO MONITOR, REPORT TO ONCOMING NURSE.
--- NOTE | 2021-04-06 07:09 | NUR ---
ASSUMED CARE: PT RESTING IN BED, INTUBATED, SETTINGS AC 14/PC 30/70/5. SEDATED WITH 60MCG PROPOFOL AND 1.4MCG OF PRECEDEX. TF THROUGH PEG TUBE. BEDOLLA AND RECTAL TUBE IN PLACE. FAMILY AT BEDSIDE. NO ACUTE NEEDS AT THIS TIME.
--- NOTE | 2021-04-06 09:43 | NUR ---
CALLED RT TO BEDSIDE TO ASSESS PT DUE TO CONTINUED DESATURATION INTO THE 80S. FENTANYL AND ATIVAN GIVEN. PROPOFOL AT 60MCG/KG AND PRECEDEX AT 1.4 MCG/KG. FIO2 INCREASED TO 80%. PT'S BROTHER IN LAW AT BEDSIDE AT THIS TIME.
--- NOTE | 2021-04-06 10:46 | NUR ---
Spoke with Dr Mehta, Dr Beaver, Primary RN Tatianna, and discussed case. No improvement with Pt's respiratory status at this time. May need to consider trach on Saturday or Saturday. Dr Mehta and Dr Beaver into to discuss with Pt's brother in law. This RN visited after discussion was over. Offered therapeutic listening and validated concerns. Brother in law tearful at times and this RN offered emotional support. Continued therapeutic listening and complimented on how well family has cared for [place] (Pt). Ended visit to allow for family to process information. Palliative Care will remain available.
--- NOTE | 2021-04-06 10:56 | NUR ---
DR BOTELLO AND PALLIATIVE CARE WENT INTO ROOM TO DISCUSS PT'S PROGNOSIS. TOLD PT'S BROTHER IN LAW THAT IF PT DOES NOT PROGRESS BY SATURDAY THEN TRACH IS OUR NEXT OPTION. ATTEMPTED TO PROVIDE COMFORT BUT FAMILY MEMBER WAS TEARFUL AND WALKED AWAY WHEN NURSE PLACED HAND ON SHOULDER. ALLOWED PRIVACY. BROTHER IN LAW REMAINS AT BEDSIDE AT THIS TIME.
--- NOTE | 2021-04-06 18:47 | NUR ---
SHIFT SUMMARY: PT REMAINS INTUBATE WITH SETTINGS AC 16/PC 30//5. PRECEDEX GTT AT 1.4MCG/KG AND PROPOFOL AT 60MCG/KG. DOSES OF FENTANYL AND ATIVAN PRN. FAMILY AT BEDSIDE MAJORITY OF SHIFT. BEDOLLA CATH IN PLACE AND RECTAL TUBE IN PLACE. MEDICATED FOR BOWEL MOVEMENT BUT NO RESULT OF YET. FAMILY RECIEVED INFORMATION FROM PULMONOLOGY TO GIVE PT UNTIL SATURDAY FOR PROGRESS THEN DECIDE IF TRACH IS NEEDED. NO FURTHER NEEDS AT THIS TIME.
--- NOTE | 2021-04-06 23:27 | NUR ---
SHIFT ASSESSMENT ASSUMED CARE OF PT @ 1900. REPORT RECEIVED FROM RIGOBERTO HODGSON. PT INTUBATED AND SEDATED. VENT SETTINGS-VCA: 16/ 90%/ PEEP 5 c O2 SATS >90%. PROPOFOL @ 60MCG/KG/MIN, PRECEDEX @ 1.4MCG/KG/HR, AND NOREPINEPHRINE @ 8MCG/MIN c MAP >60. TF INFUSING @ GOAL RATE IN PEG TUBE. TEMP BEDOLLA CATH DRAINING GREENISH, YELLOW URINE. SCANT LIQUID STOOL FROM RECTAL TUBE. WILL CONTINUE TO MONITOR.
[2021-04-07 04:45] LABS: Hematocrit 25.4 % (33.0-51.0); Hemoglobin 8.5 g/dL (11.5-16.0); Mean Corpuscular HGB 30.9 pg (26.0-34.0); Mean Corpuscular HGB Conc 33.5 g/dL (31.5-36.5); Mean Corpuscular Volume 92 fL (80-100); RDW Coefficient Variation 15.1 % (11.7-14.2); RDW Standard Deviation 50.8 fL (35.1-46.3); Red Blood Cell Count 2.75 M/mm3 (3.80-5.20); White Blood Cell Count 14.31 K/mm3 (4.00-11.30)
[2021-04-07 04:46] LABS: Mean Platelet Volume 11.9 fL (9.1-12.4); Platelet Count 232 K/mm3 (150-400)
[2021-04-07 04:54] LABS: Albumin, Blood 2.2 g/dL (3.4-5.0); Anion Gap 7 mmol/L (6-16); Blood Urea Nitrogen 19 mg/dL (8-24); Bun/Creatinine Ratio 27.9 (12.0-20.0); CO2, Blood 24 mmol/L (21-32); Chloride, Blood 109 mmol/L (98-108); Creatinine, Blood 0.68 mg/dL (0.40-1.00); Glomerular Filtration Rate >60 (60-); Glucose, Blood 105 mg/dL (70-99); Phosphorus, Blood 3.4 mg/dL (2.5-4.9); Potassium, Blood 4.1 mmol/L (3.5-5.5); Sodium, Blood 140 mmol/L (136-145)
[2021-04-07 05:22] LABS: BAND PERCENT MAN 3 % (0-8); BASOPHILS PERCENT MAN 0 % (0-2); EOSINOPHILS ABSOLUTE MAN 0.71 K/mm3 (0.00-0.68); EOSINOPHILS PERCENT MAN 5 % (0-6); LYMPHOCYTES PERCENT MAN 7 % (21-46); MONOCYTES ABSOLUTE MAN 0.42 K/mm3 (0.16-1.47); MONOCYTES PERCENT MAN 3 % (4-13); NEUTROPHILS ABSOLUTE MAN 12.16 K/mm3 (1.96-9.15); SEG NEUTROPHILS PERCENT MAN 82 % (41-73); TOTAL CELLS COUNTED 100
--- NOTE | 2021-04-07 06:36 | NUR ---
SHIFT SUMMARY PT REMAINS INTUBATED AND SEDATED, NO CHANGES IN VENT SETTINGS. APPEARED TO BE MORE RESTLESS/ UNCOMORTABLE DURING THE NIGHT. MEDICATED c PRN PAIN MEDS AND ATIVAN. PT WITH LOW GRADE FEVER, ONE DOSE OF ACETAMINOPHED GIVEN. TF CONTINUES AT GOAL RATE. RECTAL TUBE DRAINING BROWN, LIQUID STOOL. TEMP BEDOLLA CATH WITH GREENISH/ YELLOW URINE. NO OTHER SIGNIFICANT CHANGES IN PT CONDITION. FAMILY REMAINS AT BEDSIDE. WILL CONTINUE TO MONITOR.
--- NOTE | 2021-04-07 10:00 | NUR ---
Care Assumed 0700 Intubated and sedated. Precedex 1.4 mcg/kg/hr, Propofol 60 mcg/kg/min, Levophed 10 mcg/min, via central line. Pt slight grimace during oral care. Vent settings: AC PC 16/30/5/90%. Pt with increase RR 40's and peak pressure 40's. RT made aware. Dr. De Leon and Dr. Beaver at bedside. Pivot 1.5 @ goal via peg tube. Temp byrne in place wtih clear yellow/urine. NSR. [id number] at bedside.
--- NOTE | 2021-04-07 17:56 | NUR ---
Shift Summary Precedex 1.4 mcg/kg/hr, Propofol 60 mcg/kg/min, Nimbex 1 mcg/kg/min, Norepinephrine 10 mcg/min. Pt unable to respond. Nimbex bolus given of 1500 mcg per verbal order from Dr. De Leon, verified by Vonnie De Leon. BIS score of 26 prior to starting Nimbex and train of 4 :4/4. Currently BIS score of 30 and train of 4: 4/4. Vent settings of A/C PC 30,25,5,90%. Pt noncompliant with vent T/O shift, started on Nimbex. Tidal volume of 251 currently. CXR ordered by Dr. De Leon, no new findings. Pt progressively appears to be worsening per CXR per provider. Tube feed placed on standby due to small amount of feed present in oral cavity, possible emesis. Temp byrne in place draining to gravity. Family/post anesthesia care unit nurse has gone home for the day. Dr. De Leon spoke to [id number]-de-tmf about patients poor prognosis. Aeoqsdh-nt-kyo tearful but would like to stay full code. NSR. MAP > 60 and SPO2 > 88%. Provider would like tube feed placed on standby for 24 hours and color
--- NOTE | 2021-04-07 18:50 | NUR ---
Prone Patient to be proned for 12 hours after ABG results.
[2021-04-07 18:58] LABS: PCO2 Arterial 43.6 mmHg (35-45); PO2 Arterial 57.4 mmHg (80-100); pH Blood Arterial 7.35 (7.35-7.45)
--- NOTE | 2021-04-07 20:00 | NUR ---
ASSUMED CARE OF PT AT 1915. REPORT RECEIVED AT BEDSIDE. PT PRESENTS IN BED. INTUBATED. NIMBEX DRIP, PROPOFOL, AND PRECEDEX DRIPS FOR SEDATION AND PARALYTIC. SEE FLOWSHEET FOR DETAILS. BIS MONITORING IN PLACE. 20-25 WHICH IS GOAL PER DR NUÑEZ. WILL REVIEW CHART AND PLAN OF CARE FOR THIS PT.
--- NOTE | 2021-04-08 00:10 | NUR ---
WITH TURN IN BED, PT'S OXYGEN SATURATIONS DROP TO 80 PERCENT. HAVE INCREASED FIO2 TO 100 PERCENT. RESPIRATORY TO ROOM. PEEP INCREASED. CALL MADE TO DR ANDERSON WITH UPDATE. SHE CALLS TO DR NUÑEZ. RECEIVED CALL FROM DR NUÑEZ WITH DIRECTIONS. PT'S NEPHEW IN ROOM. UPDATE GIVEN. PT'S OXYGEN SATURATIONS CURRENTLY REMAIN 88-91 PERCENT. WILL CONTINUE TO MONITOR.
[2021-04-08 04:45] LABS: BASOPHILS ABSOLUTE AUTO 0.05 K/mm3 (0.00-0.23); BASOPHILS PERCENT AUTO 0 % (0-2); EOSINOPHILS ABSOLUTE AUTO 0.91 K/mm3 (0.00-0.68); EOSINOPHILS PERCENT AUTO 6 % (0-6); Hematocrit 27.8 % (33.0-51.0); Hemoglobin 8.5 g/dL (11.5-16.0); IMMATURE GRAN ABSOLUTE AUTO 0.12 K/mm3 (0.00-0.10); IMMATURE GRAN PERCENT AUTO 1 % (0-1); LYMPHOCYTES ABSOLUTE AUTO 1.08 K/mm3 (0.84-5.20); LYMPHOCYTES PERCENT AUTO 7 % (21-46); MONOCYTES ABSOLUTE AUTO 0.74 K/mm3 (0.16-1.47); MONOCYTES PERCENT AUTO 5 % (4-13); Mean Corpuscular HGB 29.8 pg (26.0-34.0); Mean Corpuscular HGB Conc 30.6 g/dL (31.5-36.5); Mean Platelet Volume 11.5 fL (9.1-12.4); NEUTROPHILS ABSOLUTE AUTO 11.66 K/mm3 (1.96-9.15); NEUTROPHILS PERCENT AUTO 80 % (41-73); Platelet Count 218 K/mm3 (150-400); RDW Coefficient Variation 15.5 % (11.7-14.2); RDW Standard Deviation 54.9 fL (35.1-46.3); Red Blood Cell Count 2.85 M/mm3 (3.80-5.20); White Blood Cell Count 14.56 K/mm3 (4.00-11.30)
[2021-04-08 05:02] LABS: Mean Corpuscular Volume 98 fL (80-100)
[2021-04-08 05:21] LABS: Anion Gap 5 mmol/L (6-16); Blood Urea Nitrogen 20 mg/dL (8-24); Bun/Creatinine Ratio 28.7 (12.0-20.0); CO2, Blood 25 mmol/L (21-32); Calcium, Blood 7.1 mg/dL (8.5-10.1); Chloride, Blood 109 mmol/L (98-108); Glomerular Filtration Rate >60 (60-); Glucose, Blood 104 mg/dL (70-99); Magnesium, Blood 2.5 mg/dL (1.6-2.4); Potassium, Blood 4.6 mmol/L (3.5-5.5); Sodium, Blood 139 mmol/L (136-145)
--- NOTE | 2021-04-08 05:43 | NUR ---
HAVE SPOKEN TO DR ANDERSON TWICE THIS NIGHT CONCERNING PT BEING VERY OXYGEN SENSITIVE WITH ANY STIMULI. WITH SATURATIONS DROPPING TO 80 PERCENT. WHEN THIS WOULD OCCUR PT WOULD SLOWLY RECOVER TO 88 PERCENT OVER EXTENDED PERIOD OF TIME. DR ANDERSON AWARE THAT DECISION NOT TO NOT PRONE PT SECONDARY TO BEING UNSTABLE WAS MADE. WILL RE-EVALUATE WHEN DR ANDERSON IS IN THIS MORNING. PT'S NEPHEW HAS BEEN IN AND STAYED WITH PT THROUGH THE NIGHT. HAVE UPDATED NEPHEW ON PT'S CONDITION AND HER FRAGILE STATE. WILL CONTINUE TO MONITOR PT, AND WILL REPORT OFF TO ONCOMING RN.
--- NOTE | 2021-04-08 09:45 | NUR ---
DNR Status Dr. Carroll at bedside and discussed patients poor prognosis with [id number]. Per patient tnifgey-ok-zjo, Joe Thomas, patient would not want CPR. DNR band placed on left wrist and on door. Joe is tearful but understand of the situation. Patients sister to come in today for discussion on comfort care.
--- NOTE | 2021-04-08 10:00 | NUR ---
Care Assumed 0700 Pt intubated and sedated. Precedex 1.4 mcg/kg/hr, Propofol 55 mcg/kg/min, Norepinephrine 12 mcg/min, and Nimbex 2 mcg/kg/min. BIS scare 20's, ok per Dr. De Leon and train of 4: 4/4. Pt compliant with vent settings: AC PC 30/25/9/100%, SPO2 > 87%. Pt destats quickly during turns. Tube feed continues on hold. Family at bedside (Joe). Temp byrne in place, draning to gravity. NSR. MAP > 60. Call [facility] within families reach. Dr. De Leon and Dr. Beaver in to see patient. Updated on patients calcium of 0.98, Dr. De Leon to place replacement orders. Will continue to monitor.
--- NOTE | 2021-04-08 11:47 | NUR ---
Update- Dr. De Leon at bedside Dr. De Leon in to see patient and [id number]-gs-mjv Joe. Family updated on patients poor prognosis. Offered pallative care and spiritual care, Joe refused. Would like to discuss everything with and hoping rest of family can come in today.
--- NOTE | 2021-04-08 16:38 | NUR ---
FINAL DISCHARGE - Comfor care Patient made comfort care at 1451, Nimbex placed on standby. Dr. De Leon made aware of families wishes. Pt extubated at 1545 and pts final discharge at 1558. Hjolxun-hu-jry and patients sister at bedside. Family teaful and left at 1600. Donor line informed, Dr. De Leon and Dr. Carroll made aware of passing. Pts belongings sent home with family.
--- NOTE | 2021-04-08 17:00 | NUR ---
Fax to donor line Fax of patients medical records sent to donor line per request. Will call home after hearing from donor line.
--- NOTE | 2021-04-08 18:39 | NUR ---
[facility] called and provided with patient information. [facility] is families choice of home. home states they will come soon.
== END 2021-04-08 15:58 | DRG 870 ==
LOC: ER 21:16 → ERHOLD 23:13 → ICUW 23:13
PROVIDERS: Emergency Medicine; Internal Medicine; Internal Medicine Critical Care Medicine; Student in an Organized Health Care Education/Training Program; ADMIT Family Medicine
PROC: 06HY33Z Insertion of Infusion Device into Lower Vein, Percutaneous Approach (ICD-10-PCS; 2021-03-28)
PROC: 3E033XZ Introduction of Vasopressor into Peripheral Vein, Percutaneous Approach (ICD-10-PCS; 2021-03-29)
PROC: 0BH18EZ Insertion of Endotracheal Airway into Trachea, Via Natural or Artificial Opening Endoscopic (ICD-10-PCS; principal; 2021-03-30)
PROC: 0B9J8ZZ Drainage of Left Lower Lung Lobe, Via Natural or Artificial Opening Endoscopic (ICD-10-PCS; 2021-03-30)
PROC: 0B9F8ZZ Drainage of Right Lower Lung Lobe, Via Natural or Artificial Opening Endoscopic (ICD-10-PCS; 2021-03-30)
PROC: 5A1955Z Respiratory Ventilation, Greater than 96 Consecutive Hours (ICD-10-PCS; 2021-03-30)
PROC: 5A09557 Assistance with Respiratory Ventilation, Greater than 96 Consecutive Hours, Continuous Positive Airway Pressure (ICD-10-PCS; 2021-03-30)
DX: A41.51 Sepsis due to Escherichia coli [E. coli] (principal); R53.2 Functional quadriplegia; R65.21 Severe sepsis with septic shock; J69.0 Pneumonitis due to inhalation of food and vomit; J96.01 Acute respiratory failure with hypoxia; E87.2 Acidosis; N39.0 Urinary tract infection, site not specified; E87.1 Hypo-osmolality and hyponatremia; G43.909 Migraine, unspecified, not intractable, without status migrainosus; Z51.5 Encounter for palliative care; E03.9 Hypothyroidism, unspecified; E87.6 Hypokalemia; E83.42 Hypomagnesemia; E83.39 Other disorders of phosphorus metabolism; B96.1 Klebsiella pneumoniae [K. pneumoniae] as the cause of diseases classified elsewhere; Z66 Do not resuscitate; G80.9 Cerebral palsy, unspecified; G40.909 Epilepsy, unspecified, not intractable, without status epilepticus; F32.9 Major depressive disorder, single episode, unspecified; I10 Essential (primary) hypertension; Z96.642 Presence of left artificial hip joint; Z90.49 Acquired absence of other specified parts of digestive tract; Z90.710 Acquired absence of both cervix and uterus; Z98.890 Other specified postprocedural states; Z79.899 Other long term (current) drug therapy
CPT/HCPCS: 31720; 36415; 36556; 36600; 51702; 70450; 71045; 71250; 74176; 80048; 80053; 80069; 81001; 82330; 82803; 83605; 83735; 83880; 84100; 84132; 84484; 85025; 85027; 87040; 87070; 87077; 87086; 87186; 87205; 93005; 93010; 93306; 93970; 94003; 94640; 96365-59; 96366-59; 96367-59; 96375; 96375-59; 96376-59; 99285-25; A9270; C1751; C9113; J1650; J1940; J2060; J2250; J2270; J2405; J2543; J2550; J2704; J3010; J3475; J3480; J7030; J7040; J7050; J7060; J7120; P9046